=== PATIENT | female | born 1995 | race Caucasian/White ===

== ENCOUNTER 2018-02-23 09:59 | Inpatient (IN) | payer OTHER ==
[2018-02-23] MEDS ORDERED: Insulin Regular 300 UNITS/3 ML VIAL ONE (10:14)
--- NOTE | 2018-02-23 10:41 | RAD ---
CHEST ONE VIEW: History: Chest pain. Comparison: 11-01-16 FINDINGS: The lungs are clear. No pneumothorax or effusion. Cardiac silhouette and mediastinal contours are wit hin normal limits. No acute osseous abnormality. IMPRESSION: No acute intrathoracic abnormality. POS: [facility]
[2018-02-23] MEDS ORDERED: Insulin Regular 100 units/100 ml in NS IVPB SCH (10:45)
[2018-02-23 10:49] LABS: Hemoglobin 16.6 g/dL (12.0-16.0); Mean Corpuscular HGB CONC 34.2 g/dL (32.0-36.0); Mean Corpuscular Hemoglobin 31.2 pg (27.0-31.0); Mean Corpuscular Volume 91.2 fL (78.0-98.0); Mean Platelet Volume 8.5 fL (7.4-10.4); Platelet Count 547 thou/uL (130-400); RBC Distribution Width 13.7 % (11.5-14.5); Red Blood Cell (RBC) Count 5.33 mill/uL (4.20-5.40); White Blood Cell (WBC) Count 52.8 thou/uL (4.8-10.8)
[2018-02-23 10:51] LABS: Bilirubin Negative (Negative); Blood, Urine Small (Negative); Glucose, Urine (Dipstick) >=1000 mg/dL (Negative); Leukocyte Negative (Negative); Nitrite Negative (Negative); Protein, Urine (Dipstick) 30 mg/dL (Neg-Trace); Specific Gravity, Urine 1.025 (1.005-1.030); Urobilinogen 0.2 mg/dL (0.2-1.0); pH, Urine 5.5 (5.0-9.0)
[2018-02-23 10:54] LABS: BHCG - Serum Negative (NEGATIVE); Pregs Control Background? CLEAR/WHITE (CLR/WHITE); Pregs Control Bar Appear? YES (CONTROL BAR)
[2018-02-23 10:57] LABS: Clarity Clear (Clear)
[2018-02-23] MEDS ORDERED: Piperacillin/Tazobactam 4.5 GM VIAL ONE (11:01)
[2018-02-23 11:05] LABS: Band 44 % (5-11); Eosinophils 1 % (0-10); Lymphocytes 19 % (21-51); MDiff Complete? YES; Metamyelocyte 2 % (0-0); Monocytes 5 % (0-10); Myelocyte 1 % (0-0); Neutrophil 27 % (42-75); Nucleated RBC 2 % (0); PLT Morphology Comment Appears Increased; Poikilocytosis SLIGHT = 6-15 cells (100X) (0-5/hpf); Reactive Lymphocytes 1 % (0-10)
[2018-02-23 11:06] LABS: ALT (SGPT) 26 U/L (8-55); AST (SGOT) 33 U/L (5-34); Albumin 4.7 g/dL (3.5-5.0); Alkaline Phosphatase 221 U/L (40-150); BUN (Urea Nitrogen) 29 mg/dL (7.0-18.7); Bilirubin, Total 0.2 mg/dL (0.2-1.2); Calc. Creatinine Clearance 0 mL/min (70-130); Calcium 10.5 mg/dL (7.8-10.44); Carbon Dioxide Less than 8 mmol/L (22-29); Chloride 96 mmol/L (98-107); Estimated GFR-MDRD 36; Globulin 5.4 g/dL (2.4-3.5); Glucose 707 mg/dL (70-105); Magnesium 3.7 mg/dL (1.6-2.6); Potassium 5.8 mmol/L (3.5-5.1); Protein, Total 10.1 g/dL (6.0-8.3); Sodium 126 mmol/L (136-145)
[2018-02-23 11:06] LABS: Bacteria/HPF 1+ HPF (None Seen); Crystals/HPF 2+ AMORPH URATES HPF (Negative); RBC/HPF 0-3 HPF (0-3); Squamous Epithelial 0-3 HPF (0-3); WBC/HPF 0-3 HPF (0-3)
[2018-02-23] MEDS ORDERED: Ondansetron PF 4 MG/2 ML Vial ONE (12:18)
--- NOTE | 2018-02-23 12:25 | PDOC.FPRHP ---
- History of Present Illness Chief Complaint: DKA History of Present Illness: The patient is a 22YO female with a PMH significant for DMI and multiple admissions for DKA who was brought in by EMS for elevated blood glucose found after being found in her bed this morning. Of note, history taken from the patient limited 2/2 AMS and inability to answer questions other than by noding yes or no so majority of history obtained from ER physician and EMS. Per EMS the patient was late to work today so someone went to her house to check on her and found her laying in bed. EMS reports her BG was elevated at 481 on the seen and she was tachycardic. The patient endorsed some nausea and some ear pain. Per the patient's nurse, she reportedly has had recent trouble with eat infections and has been seen at [facility] for this. However, the patient denied any recent antibiotic use. ED Course: 4mg IV zofran 4.5g zosyn 0.1units/kg IV push of Novolin 0.1 units/kg/hr novolin drip 2L of LR - Allergies/Adverse Reactions Allergies Allergy/AdvReac Type Severity Reaction Status Date / Time No Known Drug Allergies Allergy Verified 04/02/16 00:38 - Home Medications Medication Instructions Recorded Confirmed Type HumaLOG [HumaLOG Vial] 0 unit SC ACHS PRN 04/02/16 11/01/16 History NPH, Human Insulin Isophane 12 unit SC QAM 04/02/16 11/01/16 History [HumuLIN N] Insulin Degludec [Tresiba 28 unit SQ DAILY 11/01/16 11/01/16 History Flextouch U-100] - History PMHx: DMI PSHx: per last H&P, Appe at age 15 FHx: No FH of DM per patient. Per last H&P, colon and rectal CA in father. Social: No EtOH, drug, or tobacco use. - Review of Systems ROS unobtainable: other (limited 2/2 AMS) General: denies: fever/chills ENT: reports: other (+ ear pain) Gastrointestinal: reports: nausea, vomiting. denies: diarrhea, abdominal pain Genitourinary: denies: dysuria, polyuria - Vital signs BP: 137/87 HR: 126 RR: 29 Tmax: 94.8F rectal Pox: 100% on RA Wt: 51.60kg - Physical Exam Constitutional: other (moderate distress 2/2 hypothermia and tachypnea) HEENT: normocephalic and atraumatic, PERRLA, conjunctiva clear, grossly normal vision, grossly normal hearing, oropharynx clear, other (dry mucus membranes; B/ L bulging and erythematous TMs, L>R) Neck: supple, FROM Heart: normal S1/S2, pulses present, no edema, other (tachycardic w/ regular rhythm) Lungs: CTAB, good air movement, no wheezing, other (moderate respiratory distress with tachypnea) Abdomen: soft, non-tender Musculoskeletal: normal structure, ROM grossly normal Neurological: no focal deficit Skin: no rash/lesions, good turgor, no jaundice Heme/Lymphatic: no unusual bruising or bleeding, no purpura Psychiatric: other (oriented to person but not place or time) FMR H&P: Results - Labs Result Diagrams: 02/23/18 10:08 02/23/18 13:54 Lab results: WBC 52.8 thou/uL (4.8-10.8) H* 02/23/18 10:08 Hgb 16.6 g/dL (12.0-16.0) H 02/23/18 10:08 Hct 48.7 % (36.0-47.0) H 02/23/18 10:08 MCV 91.2 fL (78.0-98.0) 02/23/18 10:08 Plt Count 547 thou/uL (130-400) H 02/23/18 10:08 Band Neuts % (Manual) 44 % (5-11) H 02/23/18 10:08 Sodium 126 mmol/L (136-145) L 02/23/18 10:08 Potassium 5.8 mmol/L (3.5-5.1) H 02/23/18 10:08 Chloride 96 mmol/L (98-107) L 02/23/18 10:08 Carbon Dioxide Less than 8 mmol/L (22-29) L* 02/23/18 10:08 BUN 29 mg/dL (7.0-18.7) H 02/23/18 10:08 Creatinine 1.74 mg/dL (0.6-1.1) H 02/23/18 10:08 Glucose 707 mg/dL (70-105) H* 02/23/18 10:08 Calcium 10.5 mg/dL (7.8-10.44) H 02/23/18 10:08 Total Bilirubin 0.2 mg/dL (0.2-1.2) 02/23/18 10:08 AST 33 U/L (5-34) 02/23/18 10:08 ALT 26 U/L (8-55) 02/23/18 10:08 Alkaline Phosphatase 221 U/L (40-150) H 02/23/18 10:08 Serum Total Protein 10.1 g/dL (6.0-8.3) H 02/23/18 10:08 Albumin 4.7 g/dL (3.5-5.0) 02/23/18 10:08 Urine Ketones > or equal to 80 mg/dL (Negative) H 02/23/18 10:20 Urine Blood Small (Negative) H 02/23/18 10:20 Urine Nitrite Negative (Negative) 02/23/18 10:20 Ur Leukocyte Esterase Negative (Negative) 02/23/18 10:20 Urine RBC 0-3 HPF (0-3) 02/23/18 10:20 Urine WBC 0-3 HPF (0-3) 02/23/18 10:20 Ur Squamous Epith Cells 0-3 HPF (0-3) 02/23/18 10:20 Urine Bacteria 1+ HPF (None Seen) H 02/23/18 10:20 - EKG Interpretation EKG: Sinus tachycardia. - Radiology Interpretation Chest x-ray Status: report reviewed by me (No acute cardiopulmonary process.) FMR H&P: A/P - Problem List (1) Hyperkalemia Current Visit: Yes Status: Acute Code(s): E87.5 - HYPERKALEMIA (2) Leukocytosis Current Visit: Yes Status: Acute Code(s): D72.829 - ELEVATED WHITE BLOOD CELL COUNT, UNSPECIFIED (3) Hyponatremia Current Visit: Yes Status: Acute Code(s): E87.1 - HYPO-OSMOLALITY AND HYPONATREMIA Comment: Pseudohyponatremia due to hyperglycemia (4) Metabolic acidosis Current Visit: Yes Status: Acute Code(s): E87.2 - ACIDOSIS (5) DKA (diabetic ketoacidoses) Current Visit: Yes Status: Acute Code(s): E13.10 - OTH DIABETES MELLITUS WITH KETOACIDOSIS WITHOUT COMA Qualifiers: Diabetes mellitus type: type 1 Diabetes mellitus complication detail: without coma Qualified Code(s): E10.10 - Type 1 diabetes mellitus with ketoacidosis without coma (6) Polycythemia due to fall in plasma volume Current Visit: Yes Status: Acute Code(s): D75.1 - SECONDARY POLYCYTHEMIA (7) Thrombocytosis Current Visit: Yes Status: Acute (8) Otitis media Current Visit: Yes Status: Acute Code(s): H66.90 - OTITIS MEDIA, UNSPECIFIED , UNSPECIFIED EAR Qualifiers: Laterality: bilateral Spontaneous tympanic membrane rupture: without spontaneous rupture - Plan 22YO female w/ a PMH significant for DMI and previous admissions for DKA who presented to the ED in DKA after being found down in her home earlier this morning. DKA: - Will keep NPO and continue insulin drip at 5 units/hr. Will continue Q1H BG checks while on drip. - Will continue IVFs per DKA protocol. - Will obtain BMPs Q4H to monitor electrolytes and anion gap. - ABG pending but CMP significant for metabolic acidosis with a bicarb level of 8. - Will attempt to contact PCP and/or family in order to obtain home meds. Hyperkalemia: - K of 5.8 on presentation but was given an insulin bolus and started on an insulin drip which should help correct this. EKG negative for any peaked T waves. - Will get BMPs Q4H to ensure K does not get too low 2/2 insulin drip. Will replace PRN. KUSHAL: - BUN/Cr elevated at 29/1.74 on admission. Will continue with IVF resuscitation and continue to monitor with QD labs. - Likely 2/2 volume depletion from DKA. B/L Otitis Media: - PE significant for B/L injected TMs L>R. - Will continue broad spectrum antibiotics for now as patient technically meets sepsis criteria given abnormal vitals. Will de-escalate abxs PRN based on procal. Leukocytosis with bandemia: - WBC of 52.8 on presentation with hypothermia, tachycardia, and tachypnea. Patient meets SIRS criteria but only potential source of infection on PE and labs is B/L otitis media. - s/p 4.5g of zosyn in the ED. Will continue Zosyn and add vancomycin as well given significant bandemia and patient's ill appearance. Procalcitonin pending. Will deescalate Abx therapy once PRN based on procal. Lactate mildly elevated at 2.2 but likely 2/2 stress response from DKA. - Flu swab pending as well to r/o viral source of infection. Blood and urine cultures pending as well. Polycythemia: - Likely 2/2 hemoconcentration from volume depletion due to DKA. - Will continue to monitor w/ QD labs until down trend can be established. Thrombocytosis: - Platelets elevated at 547 on presentation. - Likely also 2/2 volume depletion from DKA and/or acute phase reactant 2/2 infection. - Will continue to monitor w/ QD bloodwork. DMI: - Will obtain an A1c as suspect poor med compliance due to multiple admissions for DKA. - Will get home meds from PCP and/or family and restart once patient's BG has stabilized and she is off the insulin drip. - Q1H BG checks while on drip and will deescalate to ACHS once off drip. FMR H&P: Upper Level - Pertinent history 22 yo female here for nausea/vomiting. Patient history is limited due to patient AMS, she is able to make spontaneous eye contact and answer yes or no questions, but has difficulty verbalizing acute or chronic history. Patient endorses compliance with insulin. ER reports that bedside family reports that patient has been at [facility] or UC for URI symptoms and ear infections. Denies antibiotic use for ear infections. Previous admissions (Oct 2016, Mar 2016) showed that patient follows up with merchandise planning manager, Jenny Lipscomb [facility], in [facility]. - Pertinent findings 125/72 HR: 126 TEMP: 93.3 RR: 25 SO2: 100% on RA WBC: 52.8 Neut: 27% Band: 44% Na: 126 K 5.8 CO2: < 8 Cr: 1.74 Gluc: 707 Ca: 10.5 M.7 Bhydrox: 13.07 Lactate: 2.2 test: negative Ur Gluc: >1000 Ur Ketones: >80 CXR: No acute abnormality GCS: 12 (spontaneously opening eyes, incomprehensible sounds, obeys commands) CARD: tachycardic RESP: CTAB, Kussmaul breathing ABD: NTTP EXT: cool, no cyanosis or edema - Plan Date/Time: 02/23/18 1225 I, Mihai Morgan DO, have evaluated this patient and agree with findings/plan as outlined by product development intern resident. Pertinent changes/additions are listed here. #Diabetic Ketoacidosis -DKA protocol -monitor anion gap, unable to measure at this time due to CO2 <8 -unsure of exact source of infection # bilateral otitis media -covered with broad spectrum at this time #Leukocytosis -unsure of source but could just be due to otitis media, bands high; Lactate 2.2 ; received zosyn in ER -procal, flu, blood cx, urine cx pending -trend labs -consider de-escalation of abx to just cover otitis media #Diabetes -Discuss regimen with patient once she is more oriented #Acute Kidney Injury -fluid resuscitation via DKA protocol
[2018-02-23 14:15] LABS: BUN (Urea Nitrogen) 26 mg/dL (7.0-18.7); Calc. Creatinine Clearance 0 mL/min (70-130); Calcium 9.7 mg/dL (7.8-10.44); Chloride 110 mmol/L (98-107); Estimated GFR-MDRD 55; Glucose 400 mg/dL (70-105); Potassium 4.5 mmol/L (3.5-5.1); Sodium 136 mmol/L (136-145)
[2018-02-23 14:27] LABS: Carbon Dioxide Less than 8 mmol/L (22-29)
[2018-02-23 15:57] LABS: Actual Bicarbonate (HCO3a) 2.6 mEq/L (22-28); Base Excess (BEa) -25.8 mEq/L (-2.0 to +3.0); Calcium, Ionized 1.44 mmol/L (1.12-1.30); Carboxyhemoglobin (COHb) 0.8 gm% (0.0-3.0); Hemoglobin (Hb) 14.3 g/dL (12.0-16.0); O2 Tension (PaO2) 114.3 mmHg (80.0-100.0); Potassium - ABG Lab 4.52 mmol/L (3.70-5.30)
[2018-02-23] MEDS ORDERED: Sodium Bicarb 50 MEQ/50 ML Abboject 8.4% SYRINGE ONE (16:00)
[2018-02-23] MEDS ORDERED: Sodium Bicarb 50 MEQ/50 ML Abboject 8.4% SYRINGE IVP SCH (16:00)
[2018-02-23] MEDS ORDERED: Sodium Bicarb 50 MEQ/50 ML VIAL ONE ×3 (16:02→20:09)
[2018-02-23 16:07] LABS: CO2 Tension 9.8 mmHg (35.0-45.0); pH, Arterial 7.04 (7.35-7.45)
[2018-02-23 16:08] LABS: Puncture Site RRA
[2018-02-23 16:10] LABS: Hemoglobin A1c 13.5 % (4.0-6.0)
[2018-02-23] MEDS ORDERED: Promethazine HCl 25 MG/ML VIAL IVPB SCH (16:12)
[2018-02-23] MEDS ORDERED: Ondansetron PF 4 MG/2 ML Vial IVP PRN ×2 (16:13→16:48)
[2018-02-23] MEDS ORDERED: Dextrose 5 %-0.45 % NaCl 1,000 ML IV PRN (16:48)
[2018-02-23] MEDS ORDERED: Dextrose 5% in Water 1,000 ML IV PRN (16:48)
[2018-02-23] MEDS ORDERED: Sodium Chloride 0.9% 1,000 ML IV PRN ×4 (16:48)
[2018-02-23] MEDS ORDERED: NS 0.9% w/ 20 MEQ KCL 1,000 ML IV PRN ×2 (16:48)
[2018-02-23] MEDS ORDERED: Dextrose 50% Abboject 50 ML SYRINGE SLOW IVP PRN (16:48)
--- NOTE | 2018-02-23 17:12 | RAD ---
ABDOMEN 1 VIEW: HISTORY: Intractable vomiting. Evaluate for small bowel obstruction. COMPARISON: None. FINDINGS: Evaluation for free air is limited on upright examination. No air fluid levels are seen. Mild stool burden within the colon. No abnormal calcifications projecting over the renal shadows. IMPRESSION: No evidence for bowel obstruction. POS: [facility]
[2018-02-23] MEDS: Vancomycin HCl 1 GM in Premix Bag 1 BAG IVPB SCH (17:14)
--- NOTE | 2018-02-23 17:27 | CON ---
DATE OF CONSULTATION: HISTORY OF PRESENT ILLNESS: Gosia López is a 22-year-old female with known history of type 1 diabetes, has been here several times, presented to the hospital after her friend's family noticed that she did not come to work. She was found in bed encephalopathic, tachycardic, nauseated and vomited a large volume of vomitus, dirty brown, in the MICU. Her blood sugar is 481. She was given some Zofran and is on an insulin drip at 5 units an hour. We have been seeing her in MICU consult. Unable to get adequate history. She is clearly encephalopathic, though she denies any pain or discomfort. PAST MEDICAL HISTORY: Type 1 diabetes. PREVIOUS SURGERIES: Appendix. MEDICATIONS: She had normally had been taking insulin at home, it is unknown at this stage. As per the records, it appears she was taking NPH 70/30, 12 units once a day. ALLERGIES: NONE. SOCIAL HISTORY: Tobacco, none. Alcohol, none. She is apparently from out of town. PHYSICAL EXAMINATION: VITAL SIGNS: She is breathing 30 times a minute, pulse is 138, temperature 97, blood pressure 120/82. GENERAL: She is clinically dry. CHEST: Decreased breath sounds. No wheezing. CARDIAC: Sinus tach. ABDOMEN: Soft. NEUROLOGIC: She is oriented to place and person. LABORATORY DATA: Bicarb is only 8, creatinine 1.2, BUN is 26, glucose 326. Additional lab shows a white count of 52,000, H and H 16 and 48, platelet count is normal. She has a big left shift with 44 bandemia, 27 neutrophils. IMPRESSION: 1. Uncontrolled diabetes. 2. Nausea and vomiting. 3. Marked leukocytosis. I agree with vancomycin, and I have added Maxipime for gram-negative coverage. Continue aggressive hydration. Antinausea medication. Blood gas is consistent with severe metabolic acidosis. Additionally, she was given two amps of bicarb. We will follow on the MICU. She probably needs ongoing counseling regarding her uncontrolled diabetes. This is a consultation note of 70 minutes, of which, 50% in direct patient care. Job ID: [id number]
[2018-02-23 17:43] VITALS: BMI 21.2
[2018-02-23 18:08] LABS: BUN (Urea Nitrogen) 22 mg/dL (7.0-18.7); Calc. Creatinine Clearance 64 mL/min (70-130); Chloride 117 mmol/L (98-107); Estimated GFR-MDRD 55; Glucose 259 mg/dL (70-105); Potassium 4.5 mmol/L (3.5-5.1); Sodium 144 mmol/L (136-145)
[2018-02-23 18:11] LABS: Carbon Dioxide Less than 8 mmol/L (22-29)
[2018-02-23 18:13] LABS: Lactic Acid 1.6 mmol/L (0.5-2.2)
[2018-02-23] MEDS: D5 1/2 NS w/20 mEq KCL 1,000 ML IV PRN ×2 (18:21→22:25)
[2018-02-23 20:01] LABS: Actual Bicarbonate (HCO3a) 2.2 mEq/L (22-28); Base Excess (BEa) -27.3 mEq/L (-2.0 to +3.0); Calcium, Ionized 1.38 mmol/L (1.12-1.30); Carboxyhemoglobin (COHb) 0.4 gm% (0.0-3.0); Hemoglobin (Hb) 14.1 g/dL (12.0-16.0); Potassium - ABG Lab 3.78 mmol/L (3.70-5.30)
[2018-02-23 20:02] LABS: pH, Arterial 6.99 (7.35-7.45)
[2018-02-23 20:03] LABS: ALV-art Gradient 8.105 (0-20); CO2 Tension 9.3 mmHg (35.0-45.0); Puncture Site LRA
[2018-02-23] MEDS ORDERED: Sodium Bicarbonate 150 MEQ in Dextrose 5% in Water 1,000 ML IV SCH (20:15)
[2018-02-23] MEDS ORDERED: Sodium Bicarb 50 MEQ/50 ML VIAL IVP SCH (20:15)
[2018-02-23] MEDS ORDERED: Sodium Bicarbonate 150 MEQ in Sodium Chloride 0.45% 1,000 ML IV SCH (20:30)
--- NOTE | 2018-02-23 20:36 | PDOC.EVN ---
Event Note - Event Note Event Note: Received page from [facility] at approximately 1930 about patient becoming increasingly confused. ABG was performed. pH was 6.9 CO2 9, O2 100. 2 amp of bicarb was given. Bicarb drip started. Insulin bolus was given as BG still 300+. Pulm was alerted of this. Recommended to continue with intervention and re- evaluate frequently. FMR attending notified and saw patient.
[2018-02-23 21:11] LABS: Amphetamine Not Detected (NotDetected); Barbiturates Screen Not Detected (NotDetected); Benzodiazepine Screen Not Detected (NotDetected); Cocaine Metabolite Screen Not Detected (NotDetected); Medtox Control Line Valid? VALID (VALID); Medtox Reader # READER 1; Methadone Not Detected (NotDetected); Methamphetamine Not Detected (NotDetected); Opiate Screen Not Detected (NotDetected); Oxycodone Screen Not Detected (NotDetected); Phencyclidine (PCP) Not Detected (NotDetected); THC/Cannabinoid Screen Not Detected (NotDetected); Tricyclic Screen Not Detected (NotDetected)
[2018-02-23 21:51] LABS: Band 26 % (5-11); Lymphocytes 15 % (21-51); MDiff Complete? YES; Mean Corpuscular HGB CONC 34.4 g/dL (32.0-36.0); Mean Corpuscular Hemoglobin 30.4 pg (27.0-31.0); Mean Corpuscular Volume 88.4 fL (78.0-98.0); Mean Platelet Volume 7.8 fL (7.4-10.4); Monocytes 1 % (0-10); Neutrophil 58 % (42-75); PLT Morphology Comment Appears Adequate; Platelet Count 282 thou/uL (130-400); RBC Distribution Width 13.6 % (11.5-14.5); Red Blood Cell (RBC) Count 4.59 mill/uL (4.20-5.40)
[2018-02-23 21:58] LABS: Chloride 117 mmol/L (98-107); Potassium 3.7 mmol/L (3.5-5.1); Sodium 146 mmol/L (136-145)
[2018-02-23 21:59] LABS: Calcium 8.8 mg/dL (7.8-10.44); Glucose 337 mg/dL (70-105)
[2018-02-23 22:02] LABS: Calc. Creatinine Clearance 61 mL/min (70-130); Carbon Dioxide Less than 8 mmol/L (22-29); Estimated GFR-MDRD 52
[2018-02-23 22:03] LABS: BUN (Urea Nitrogen) 20 mg/dL (7.0-18.7)
[2018-02-23] MEDS: Cefepime 1 GM in Sodium Chloride 0.9% 100 ML IVPB SCH (22:09)
[2018-02-23] MEDS: Sodium Bicarbonate 150 MEQ in Sodium Chloride 0.45% 1,000 ML IV SCH (22:23)
[2018-02-24 00:10] LABS: O2 Tension (PaO2) 98.4 mmHg (80.0-100.0); pH, Arterial 7.39 (7.35-7.45)
[2018-02-24 00:11] LABS: Actual Bicarbonate (HCO3a) 11.7 mEq/L (22-28); Carboxyhemoglobin (COHb) 0.5 gm% (0.0-3.0); Hemoglobin (Hb) 13.1 g/dL (12.0-16.0); Potassium - ABG Lab 2.95 mmol/L (3.70-5.30)
[2018-02-24 00:12] LABS: Calcium, Ionized 1.28 mmol/L (1.12-1.30); Puncture Site LRA
[2018-02-24 01:14] LABS: Anion Gap 21 mmol/L (10-20); BUN (Urea Nitrogen) 18 mg/dL (7.0-18.7); Calc. Creatinine Clearance 61 mL/min (70-130); Carbon Dioxide 11 mmol/L (22-29); Chloride 122 mmol/L (98-107); Estimated GFR-MDRD 52; Glucose 241 mg/dL (70-105); Sodium 151 mmol/L (136-145)
[2018-02-24 01:16] LABS: Potassium 2.9 mmol/L (3.5-5.1)
[2018-02-24 01:28] LABS: Band 35 % (5-11); Hemoglobin 12.8 g/dL (12.0-16.0); Lymphocytes 12 % (21-51); MDiff Complete? YES; Mean Corpuscular HGB CONC 35.9 g/dL (32.0-36.0); Mean Corpuscular Hemoglobin 30.7 pg (27.0-31.0); Mean Corpuscular Volume 85.5 fL (78.0-98.0); Mean Platelet Volume 7.4 fL (7.4-10.4); Metamyelocyte 1 % (0-0); Monocytes 1 % (0-10); Neutrophil 51 % (42-75); PLT Morphology Comment Appears Adequate; Platelet Count 264 thou/uL (130-400); RBC Distribution Width 13.7 % (11.5-14.5); Red Blood Cell (RBC) Count 4.16 mill/uL (4.20-5.40); White Blood Cell (WBC) Count 22.9 thou/uL (4.8-10.8)
[2018-02-24] MEDS ORDERED: 1/2 NS IV SCH (02:00)
[2018-02-24] MEDS ORDERED: KCL IV SCH (02:00)
[2018-02-24] MEDS: D5 1/2 NS w/20 mEq KCL 1,000 ML IV PRN (03:27)
[2018-02-24 05:15] LABS: Anion Gap 17 mmol/L (10-20); BUN (Urea Nitrogen) 16 mg/dL (7.0-18.7); Calc. Creatinine Clearance 63 mL/min (70-130); Calcium 8.9 mg/dL (7.8-10.44); Carbon Dioxide 12 mmol/L (22-29); Chloride 123 mmol/L (98-107); Estimated GFR-MDRD 54; Glucose 246 mg/dL (70-105); Sodium 149 mmol/L (136-145)
[2018-02-24 05:17] LABS: Potassium 2.8 mmol/L (3.5-5.1)
[2018-02-24] MEDS ORDERED: D5 1/2 NS w/40 mEq KCL 1,000 ML IV SCH (05:30)
--- NOTE | 2018-02-24 05:49 | PDOC.FM ---
- Subjective Subjective: Patient became more acidotic overnight requiring another 150mEq of bicarb. Per nursing staff is not more alert and talkative but would not cooperate on exam this morning. Still only nodding her head in repsonse to questions. Nursing staff reported persistent nausea but no more vomiting. - Objective MAR Reviewed: Yes Vital Signs & Weight: Vital Signs (12 hours) Temp Pulse Resp BP Pulse Ox 02/24/18 04:29 98.6 F 122 H 23 H 117/79 99 02/24/18 00:36 99.6 F 120 H 24 H 124/83 99 02/23/18 19:52 96.9 F L 147 H 38 H 144/95 H 100 Weight Weight 56.245 kg Result Diagrams: 02/25/18 04:59 02/27/18 06:17 Phys Exam - Physical Examination Constitutional: NAD HEENT: sclera anicteric Neck: supple, full ROM Respiratory: no wheezing, no rales, no rhonchi, clear to auscultation bilateral Cardiovascular: no significant murmur tachycardic with regular rhythm Gastrointestinal: positive bowel sounds Musculoskeletal: no edema, pulses present Neurological: non-focal, moves all 4 limbs Deviation from normal: drowsy but arousable; not compliant in answering questions verbally depressed affect Skin: no rash, normal turgor Dx/Plan (1) DKA (diabetic ketoacidoses) Code(s): E13.10 - OTH DIABETES MELLITUS WITH KETOACIDOSIS WITHOUT COMA Status : Acute Qualifiers: Diabetes mellitus type: type 1 Diabetes mellitus complication detail: without coma Qualified Code(s): E10.10 - Type 1 diabetes mellitus with ketoacidosis without coma (2) Hyperkalemia Code(s): E87.5 - HYPERKALEMIA Status: Resolved (3) Leukocytosis Code(s): D72.829 - ELEVATED WHITE BLOOD CELL COUNT, UNSPECIFIED Status: Acute (4) Hyponatremia Code(s): E87.1 - HYPO-OSMOLALITY AND HYPONATREMIA Status: Acute (5) Metabolic acidosis Code(s): E87.2 - ACIDOSIS Status: Resolved (6) Polycythemia due to fall in plasma volume Code(s): D75.1 - SECONDARY POLYCYTHEMIA Status: Resolved (7) Thrombocytosis Status: Resolved (8) Otitis media Code(s): H66.90 - OTITIS MEDIA, UNSPECIFIED, UNSPECIFIED EAR Status: Acute Qualifiers: Laterality: bilateral Spontaneous tympanic membrane rupture: without spontaneous rupture (9) Hypokalemia with shifts of fluid from extracellular to intracellular space Code(s): E87.6 - HYPOKALEMIA Status: Acute (10) Diabetes mellitus type 1 Status: Acute - Plan Plan: 22YO female w/ a PMH significant for DMI and previous admissions for DKA who presented to the ED in DKA after being found down in her home. DKA: - Improving but patient still has an AG of 16 per AM labs. - Will keep NPO but stop insulin drip for now due to severe hypokalemia but will start on a long acting insulin BID per Pulmonology recs. Will continue Q1H BG checks while patient still has a gap. - Will start on 1/2 NS w/ 40 KCl @ 200mL/hr given hypernatremia and hypokalemia. - Will obtain BMPs Q4H to monitor electrolytes and anion gap. - ABG this morning improved but bicard still low at 20. Hypokalemia: - K of 2.8 this AM. Started patient on 1/2 NS w/ 40mEq of KCl @ 200mL/hr this AM. Will also see if patient tolerates an additional 40mEq PO. Will continue to monitor K levels throughout the day & with QD labs. Hyperkalemia: - Resolved. K of 5.8 on presentation but it has since dropped to 2.8 this morning since being on the insulin drip. Will replace PRN. Hypernatremia: - Na of 149 this AM s/p 150 amps of bicarb overnight. Changed to 1/2 NS w/ KCL this AM. - Will continue to monitor with QD labs. KUSHAL: - Improving. BUN/Cr down to 161.24 this AM. Will continue with IVF resuscitation and continue to monitor with QD labs. - Likely prerenal in origin 2/2 volume depletion from DKA. B/L Otitis Media: - PE on admission significant for B/L injected TMs L>R. - Will continue broad spectrum antibiotics for now as repeat procal this AM still high at 4.58. Will continue to trend and de-escalate abxs PRN based on procal. Leukocytosis with bandemia: - WBC of 52.8 on presentation but down to 22.9 this AM after getting aggressive IVFs overnight. - Will continue Zosyn and vancomycin as procalcitonin this AM still above normal at 4.58 but slightly down from 5.22 around midnight. Will continue to trend and deescalate Abx therapy PRN based on procal. - Blood and urine cultures tentatively negative. Polycythemia: - Resolved. H/H WNLs this AM. Likely 2/2 hemoconcentration from volume depletion due to DKA. Thrombocytosis: - Platelets elevated at 547 on presentation but WNLs this AM. - Likely also 2/2 volume depletion from DKA and/or acute phase reactant 2/2 infection. - Will continue to monitor w/ QD bloodwork. DMI: - A1c 13.5 which is not surprising due to parents's reports of multiple admissions for DKA since . - Will get home meds from PCP records and restart once patient's BG has stabilized and her anion gap closes. - Will continue Q1H BG checks for now. Addendum - Attending - Attending Attestation Date/Time: 02/24/181923 I personally evaluated the patient and discussed the management with Dr. Falcon and Dr. Morgan I agree with the History, Examination, Assessment and Plan documented above with any addition or exceptions noted below. 22 yo female with hx of IDDM (Type 1) admitted for severe DKA. HD#1 Patient not at baseline. Still fatigued. Reports severe ear pain. VS, labs, and imaging reviewed. 1. DKA: Severe. Re-start insulin drip. Continue to follow DKA protocol. Continue IMCU monitoring. Follow up frequently throughout the day. Will need to continue insulin drip until gap closed and ketosis corrected for at least 2 blood draws. Patient very brittle and easily converts to DKA. This is 3rd episode since January. Cultures pending but likely due to severe OM. Continue emperic antibiotics. Trend procal and WBCs. Trend and correct electrolyte and metabolic abnormalities DEVON. 2. T1DM: Will notify endocrinologiest. Adjust basal insulin based on amount required by insulin drip. Will start basal insulin once able. Leave on insulin drip for 2 hours instead of 1 due to severity of DKA. 3. Bilateral OM with effusions: Continue Cefepime. Will transition to oral 3rd gen cephalosporin once cultures back to rule out any other complications. 4. KUSHAL: Continue to monitor. No known kidney disease per patient. Pre-renal etiology. Dispo: Continue close monitoring in IMCU. Re-start DKA protocol. Rajani
[2018-02-24] MEDS: Vancomycin HCl 1 GM in Premix Bag 1 BAG IVPB SCH ×2 (05:55→17:09)
[2018-02-24] MEDS: Sodium Bicarbonate 150 MEQ in Sodium Chloride 0.45% 1,000 ML IV SCH ×3 (06:45→21:33)
[2018-02-24] MEDS ORDERED: Potassium Chloride 20 MEQ TAB PO SCH ×2 (08:00→08:15)
[2018-02-24 08:36] LABS: Magnesium 1.5 mg/dL (1.6-2.6)
[2018-02-24 08:46] LABS: Phosphorus Less than 1.0 mg/dL (2.3-4.7)
[2018-02-24] MEDS ORDERED: Potassium Phosphate 30 MMOL, Magnesium Sulfate 2 GM in Sodium Chloride 0.9% 500 ML IVPB SCH (09:15)
--- NOTE | 2018-02-24 09:16 | PRG ---
DATE OF SERVICE: 02/24/2018 SUBJECTIVE: A 22-year-old female, remains in the MICU. Saturations are 90% on room air, respirations 18, temperature 99, pulse 122, and blood pressure 117/65. She is better. She is still nauseated. Her blood sugar is 185, her bicarb is 12, creatinine 1.24, potassium 2.8, and sodium 149. OBJECTIVE: CHEST: With decreased breath sounds. No wheezing. CARDIAC: Sinus tach. ABDOMEN: Soft without any masses. IMPRESSION: 1. Diabetic ketoacidosis, still has anion gap. 2. Azotemia. 3. Nausea and vomiting. PLAN: So far, cultures are negative. Would deescalate antibiotics once we have all the cultures back. She needs insulin. Otherwise, she is going to go back into severe DKA and metabolic acidosis. Continue hydration. Replace potassium, magnesium, and phosphorus. We will follow while in the MICU. Job ID: [id number]
[2018-02-24] MEDS: Potassium Chloride 40 MEQ in Sodium Chloride 0.45% 1,000 ML IV SCH ×2 (09:32→13:32)
[2018-02-24] MEDS: Insulin Glargine 15 UNITS in Pre-Filled Syringe 1 EACH SC SCH ×2 (09:32→19:33)
[2018-02-24] MEDS: Cefepime 1 GM in Sodium Chloride 0.9% 100 ML IVPB SCH ×2 (09:32→21:26)
[2018-02-24] MEDS: Pot Chloride/Pot Bicarb/Cit Ac 25 mEq Effervescent Tablet PO SCH ×2 (09:33→21:26)
[2018-02-24 10:17] LABS: Anion Gap 16 mmol/L (10-20); BUN (Urea Nitrogen) 15 mg/dL (7.0-18.7); Calc. Creatinine Clearance 71 mL/min (70-130); Calcium 9.1 mg/dL (7.8-10.44); Carbon Dioxide 14 mmol/L (22-29); Chloride 120 mmol/L (98-107); Estimated GFR-MDRD 62; Glucose 184 mg/dL (70-105); Potassium 3.3 mmol/L (3.5-5.1); Sodium 147 mmol/L (136-145)
[2018-02-24] MEDS ORDERED: HumaLOG 300 UNITS/3 ML VIAL SC PRN (10:26)
[2018-02-24] MEDS ORDERED: Dextrose 5% in Water 1,000 ML IV PRN ×2 (10:26→22:12)
[2018-02-24] MEDS ORDERED: Dextrose 50% Abboject 50 ML SYRINGE SLOW IVP PRN ×2 (10:26→22:12)
[2018-02-24] MEDS ORDERED: Magnesium Sulfate 2 GM in Sodium Chloride 0.9% 100 ML IVPB SCH (10:30)
[2018-02-24 10:31] LABS: Actual Bicarbonate (HCO3a) 11.3 mEq/L (22-28); Base Excess (BEa) -11.4 mEq/L (-2.0 to +3.0); Calcium, Ionized 1.24 mmol/L (1.12-1.30); Carboxyhemoglobin (COHb) 0.3 gm% (0.0-3.0); Hemoglobin (Hb) 12.1 g/dL (12.0-16.0); O2 Tension (PaO2) 97.5 mmHg (80.0-100.0); Potassium - ABG Lab 4.42 mmol/L (3.70-5.30); pH, Arterial 7.39 (7.35-7.45)
[2018-02-24 10:34] LABS: Puncture Site RR
[2018-02-24] MEDS ORDERED: Magnesium 2 GM/50 ML 2 GM in Premix Bag 1 BAG IVPB SCH (10:45)
[2018-02-24] MEDS ORDERED: NS 0.9% w/ 40 MEQ KCL 1,000 ML IV PRN ×2 (12:15)
[2018-02-24] MEDS ORDERED: Potassium Phosphate 15 MMOL in Sodium Chloride 0.9% 250 ML 250 ML IV PRN (12:20)
[2018-02-24] MEDS ORDERED: CCU ELECTROLYTE REPLACEMENT PROTOCOL FS PRN (12:20)
[2018-02-24] MEDS ORDERED: Potassium Phosphate 9 MMOL in Sodium Chloride 0.9% 100 ML IVPB PRN (12:20)
[2018-02-24] MEDS ORDERED: Potassium Chloride 20 MEQ TAB PO PRN (12:20)
[2018-02-24] MEDS ORDERED: Magnesium 2 GM/NS 0.9% 100 ML 2 GM in Premix Bag 1 BAG IVPB PRN (12:20)
[2018-02-24] MEDS ORDERED: Potassium Phosphate 12 MMOL in Sodium Chloride 0.9% 250 ML 250 ML IV PRN (12:20)
[2018-02-24] MEDS ORDERED: Magnesium Oxide 400 MG TAB PO PRN ×2 (12:20)
[2018-02-24] MEDS ORDERED: Potassium Chloride 40 MEQ in Premix Bag 1 BAG IVPB PRN (12:20)
[2018-02-24] MEDS ORDERED: Potassium Chloride 40 MEQ in Sodium Chloride 0.9% 250 ML 250 ML IVPB PRN (12:20)
[2018-02-24 12:26] LABS: Bicarbonate (HCO3v) 2.7 mmol/L (22.0-29.0); CO2 Tension (PvCO2) 19.3 mmHg (41.0-51.0); O2 Tension (PvO2) 59.1 mmHg (35.0-45.0); pH (Venous) 6.747 (7.35-7.45); vO2 Saturation-calc 58.9 % (94-98)
[2018-02-24 12:27] LABS: Hemoglobin - Calc 19.7 g/dL (12.0-18.0); Potassium 5.8 mmol/L (3.4-4.7)
[2018-02-24 12:28] LABS: Calcium, Ionized 1.33 mmol/L (1.12-1.32); Glucose Greater than 700.0 mg/dL (70-105); Lactate 2.59 mmol/L (0.50-2.20)
[2018-02-24] MEDS ORDERED: CCU Electrolyte Replacement 1 EACH FS SCH (12:30)
[2018-02-24] MEDS: D5 1/2 NS w/40 mEq KCL 1,000 ML IV PRN ×2 (13:30→18:09)
--- NOTE | 2018-02-24 13:59 | PQF ---
DATE: 02-24-18 ATTN: DR. ANDRA WU Please exercise your independent, professional judgment in responding to the clarification form. Clinical indicators are provided on the bottom of this form for your review Please check appropriate box(s): [ x ] Encephalopathy: Type: [ x] Acute [ ] Subacute [ ] Chronic Etiology: [x ] Metabolic [ ] Toxic [ ] Septic [ ] Other (please specify) [ ] Transient Alteration of Awareness [ ] Other diagnosis [ ] Unable to determine In addition, please specify: Present on Admission (POA): [x ] Yes [ ] No [ ] Unable to determine For continuity of documentation, please document condition throughout progress notes and discharge summary. Thank You. CLINICAL INDICATORS - SIGNS / SYMPTOMS / LABS ER DX; DIABETIC KETOACIDOSIS, HYPOTHERMIA, LEUKOCYTOSIS H&P: ROS UNOBTAINABLE LIMITED 2/[address] BARTLETT 02-23-18: SHE WAS FOUND IN BED ENCEPHALOPATHIC EVENT NOTE 02-23-18 DR. HUDSON: PATIENT BECOMING INCREASINGLY CONFUSED PN DR. WU 02-23-18: PATIENT MEETS SIRS CRITERIA BUT ONLY POTENTIAL SOURCE OF INFECTION ON PE AND LABS IN B/L OTITIS MEDIA, METABOLIC ACIDOSIS RISK FACTORS: PN DR. WU 02-23-18: PATIENT MEETS SIRS CRITERIA BUT ONLY POTENTIAL SOURCE OF INFECTION ON PE AND LABS IN B/L OTITIS MEDIA, METABOLIC ACIDOSIS ER DX; DIABETIC KETOACIDOSIS, HYPOTHERMIA, LEUKOCYTOSIS TREATMENTS: ER: NS IVF, ZOSYN IVF, NOVOLIN R, LR IVF (This form is maintained as a part of the permanent medical record) 2014 [employer]. All Rights Reserved ARCENIO [email or web address] Office: [phone] [facility]
--- NOTE | 2018-02-24 14:12 | PQF ---
DATE: 02-24-18 ATTN: DR. ANDRA WU Please exercise your independent, professional judgment in responding to the clarification form. Clinical indicators are provided on the bottom of this form for your review Please check appropriate box(es): [ ] Sepsis due to: (Otitis Media, etc.) [ x ] Localized infection without sepsis [ ] Other diagnosis [ ] Unable to determine In addition, please specify: Present on Admission (POA): [ x ] Yes [ ] No [ ] Unable to determine For continuity of documentation, please document condition throughout progress notes and discharge summary. Thank You. CLINICAL INDICATORS - SIGNS / SYMPTOMS / LABS H&P: DIABETIC KETOACIDOSIS, HYPOTHERMIA, LEUKOCYTOSIS H&P: HISTORY TAKEN FROM THE PATIENT LIMITED 2/2 AMS, LEUKOCYTOSIS, ACUTE OTITIS MEDIA, DKA, PATIENT MEETS SIRS CRITERIA WBC: 02-23-18: 52.8 28.0 02-24-18 22.9 BANDS: 02-23-18: 44 26 02-24-18: 35 PULSE: ER: 121, 115, 119, 126, 126, 130, 133 RR: ER: 31, 32, 29, 30, 26, 32, 29 TEMP: ER: 93.3 RECTAL, 96.4 RECTAL RISK FACTORS: H&P: HISTORY TAKEN FROM THE PATIENT LIMITED 2/2 AMS, LEUKOCYTOSIS, ACUTE OTITIS MEDIA, DKA, PATIENT MEETS SIRS CRITERIA H&P: DIABETIC KETOACIDOSIS, HYPOTHERMIA, LEUKOCYTOSIS TREATMENTS: ER: NS IVF, ZOSYN IVF, LR IVF (This form is maintained as a part of the permanent medical record) 2014 [employer]. All Rights Reserved [email or web address] [email or web address] Office: [phone] [facility]
[2018-02-24 14:47] LABS: Anion Gap 19 mmol/L (10-20); BUN (Urea Nitrogen) 12 mg/dL (7.0-18.7); Calc. Creatinine Clearance 73 mL/min (70-130); Calcium 8.5 mg/dL (7.8-10.44); Carbon Dioxide 12 mmol/L (22-29); Chloride 117 mmol/L (98-107); Estimated GFR-MDRD 64; Glucose 247 mg/dL (70-105); Sodium 144 mmol/L (136-145)
[2018-02-24 18:31] LABS: Anion Gap 10 mmol/L (10-20); BUN (Urea Nitrogen) 10 mg/dL (7.0-18.7); Calc. Creatinine Clearance 91 mL/min (70-130); Calcium 8.4 mg/dL (7.8-10.44); Carbon Dioxide 18 mmol/L (22-29); Chloride 116 mmol/L (98-107); Estimated GFR-MDRD 83; Glucose 137 mg/dL (70-105); Potassium 3.6 mmol/L (3.5-5.1); Sodium 140 mmol/L (136-145)
[2018-02-24] MEDS ORDERED: Magnesium Chloride 64 MG TAB PO SCH (21:00)
[2018-02-24] MEDS: HumaLOG 300 UNITS/3 ML VIAL SC PRN (22:45)
[2018-02-25] MEDS: HumaLOG 300 UNITS/3 ML VIAL SC PRN ×2 (00:46→04:11)
--- NOTE | 2018-02-25 05:33 | PDOC.FM ---
- Subjective Subjective: Patient states she is feeling much better this AM. Was taken off of the insulin drip overnight and BG levels have been in the upper 100s since. Denies any persistent nausea or abdominal pain. - Objective MAR Reviewed: Yes Vital Signs & Weight: Vital Signs (12 hours) Temp Pulse Resp BP Pulse Ox 02/25/18 04:30 97.2 F L 99 19 118/66 100 02/25/18 00:48 99.0 F 101 H 18 98/65 98 02/24/18 19:38 98.6 F 105 H 19 109/68 98 Weight Admit Weight 56.245 kg Weight 56.245 kg I&O: 02/23/18 02/24/18 02/25/18 06:59 06:59 06:59 Intake Total 3500 4100 Output Total 2600 3300 Balance 900 800 Result Diagrams: 02/25/18 04:59 02/27/18 06:17 Phys Exam - Physical Examination Constitutional: NAD HEENT: moist MMs Neck: supple, full ROM Respiratory: no wheezing, no rales, no rhonchi, clear to auscultation bilateral Cardiovascular: no significant murmur tachycardic with regular rhythm Gastrointestinal: soft, non-tender, positive bowel sounds Neurological: non-focal, moves all 4 limbs Psychiatric: normal affect, A&O x 3 Skin: no rash, normal turgor Dx/Plan (1) DKA (diabetic ketoacidoses) Code(s): E13.10 - OTH DIABETES MELLITUS WITH KETOACIDOSIS WITHOUT COMA Status : Acute Qualifiers: Diabetes mellitus type: type 1 Diabetes mellitus complication detail: without coma Qualified Code(s): E10.10 - Type 1 diabetes mellitus with ketoacidosis without coma (2) Leukocytosis Code(s): D72.829 - ELEVATED WHITE BLOOD CELL COUNT, UNSPECIFIED Status: Acute (3) Hyponatremia Code(s): E87.1 - HYPO-OSMOLALITY AND HYPONATREMIA Status: Acute (4) Otitis media Code(s): H66.90 - OTITIS MEDIA, UNSPECIFIED, UNSPECIFIED EAR Status: Acute Qualifiers: Laterality: bilateral Spontaneous tympanic membrane rupture: without spontaneous rupture (5) Hypokalemia with shifts of fluid from extracellular to intracellular space Code(s): E87.6 - HYPOKALEMIA Status: Acute (6) Diabetes mellitus type 1 Status: Acute - Plan Plan: 22YO female w/ a PMH significant for DMI and previous admissions for DKA who presented to the ED in DKA after being found down in her home. DKA: - Resolved, patient's AG closed overnight and her BG has been ranging between 100-200s since. - Will start on CC diet on home insulin dosing as described below. Will continue BG checks Q4H for now but consider changing to ACHS checks. - Will continue QD AM BMPs to monitor electrolytes. DMI: - A1c 13.5 which is not surprising due to parents's reports of multiple admissions for DKA since . - Will resume home meds today since patient is now off the insulin drip. Hypophosphatemia: - Phosphorus of 1.6 this AM. - Will replace with PO PhosNak and continue to monitor. KUSHAL: - Resolved. BUN/Cr down to 9/0.74 this AM. - Will consider stopping IVFs as patient is now tolerating PO. B/L Otitis Media: - PE on admission significant for B/L injected TMs L>R. - Will continue broad spectrum antibiotics for now as repeat procal this AM still high at 4.58. Will continue to trend and de-escalate abxs PRN based on procal. Leukocytosis with bandemia: - WBC has been trending down. Repeat pending this AM. - Will continue Zosyn and vancomycin for now. Repeat procalcitonin pending this AM. Will continue to trend and deescalate Abx therapy PRN based on procal. - Blood and urine cultures tentatively negative. Thrombocytosis: - Platelets elevated at 547 on presentation but WNLs this AM. - Likely also 2/2 volume depletion from DKA and/or acute phase reactant 2/2 infection. - Will continue to monitor w/ QD bloodwork. Polycythemia: - Resolved. H/H WNLs this AM. Likely 2/2 hemoconcentration from volume depletion due to DKA. Hypokalemia: - Resolved, K of 3.5 this AM. - Will continue to monitor with QD bloodwork and replace PRN. Hyperkalemia: - Resolved. - Will continue to monitor with QD bloodwork and correct PRN. Hypernatremia: - Resolved, Na of 139 this AM. - Will continue to monitor with QD labs. Addendum - Attending - Attending Attestation Date/Time: 02/25/181932 I personally evaluated the patient and discussed the management with Dr. Falcon and Dr. Morgan I agree with the History, Examination, Assessment and Plan documented above with any addition or exceptions noted below. 22 yo female with hx of IDDM (Type 1) admitted for severe DKA. HD#2 Feeling better. Pain in ears still present but improved. Now off insulin drip but has not been getting SQ insulin as ordered. Now glucose trending up. VS, labs, and imaging reviewed. 1. DKA: Severe. SQ insulin has not be re-started as ordered. Monitor glucose q 2 hours. Aggressive sliding scale. Trend BMPs and urine ketone. Monitor closely to prevent DKA. Continue IMCU monitoring. Follow up frequently throughout the day. Patient very brittle and easily converts to DKA. This is 3rd episode since January. Cultures pending but likely due to severe OM. Continue emperic antibiotics until cultures negative at 48 hours. Procal and WBCs improving. Trend and correct electrolyte and metabolic abnormalities DEVON. 2. T1DM: Notified floater operator of admission. Adjust basal insulin based on amount required by insulin drip. Continue carb ratio premeal and aggressive sliding scale post meal. 3. Bilateral OM with effusions: Continue Cefepime. Will transition to oral 3rd gen cephalosporin once cultures back to rule out any other complications. 4. KUSHAL: Pre-renal etiology. Improved. Dispo: Continue close monitoring in IMCU. Adjust SQ insulin throughout the day. Rajani
[2018-02-25] MEDS: Vancomycin HCl 1 GM in Premix Bag 1 BAG IVPB SCH (05:37)
[2018-02-25 05:52] LABS: Anion Gap 12 mmol/L (10-20); BUN (Urea Nitrogen) 9 mg/dL (7.0-18.7); Calc. Creatinine Clearance 105 mL/min (70-130); Calcium 8.8 mg/dL (7.8-10.44); Carbon Dioxide 18 mmol/L (22-29); Chloride 113 mmol/L (98-107); Estimated GFR-MDRD Greater than 90; Glucose 161 mg/dL (70-105); Magnesium 1.6 mg/dL (1.6-2.6); Phosphorus 1.6 mg/dL (2.3-4.7); Potassium 3.5 mmol/L (3.5-5.1); Sodium 139 mmol/L (136-145)
[2018-02-25] MEDS: Sodium Bicarbonate 150 MEQ in Sodium Chloride 0.45% 1,000 ML IV SCH ×3 (06:46→21:01)
[2018-02-25] MEDS ORDERED: Non-Formulary Item 1 EACH (Insulin Degludec [Tresiba Flextouch U-100] 30 UNIT) SQ SCH (09:00)
[2018-02-25] MEDS ORDERED: Insulin Glargine 30 UNITS in Pre-Filled Syringe 1 EACH SC SCH (09:00)
[2018-02-25] MEDS ORDERED: Insulin Glargine 5 UNITS in Pre-Filled Syringe 1 EACH SC SCH (09:15)
[2018-02-25] MEDS: HumaLOG 300 UNITS/3 ML VIAL SC SCH ×4 (09:18→17:36)
[2018-02-25] MEDS: Cefepime 1 GM in Sodium Chloride 0.9% 100 ML IVPB SCH (09:19)
[2018-02-25] MEDS: Pot Chloride/Pot Bicarb/Cit Ac 25 mEq Effervescent Tablet PO SCH ×2 (09:22→20:58)
[2018-02-25 09:26] LABS: #Basophils 0.1 thou/uL (0.0-0.2); #Eosinphils 0.2 thou/uL (0.0-0.7); #Lymphocytes 2.3 thou/uL (1.20-3.40); #Monocytes 0.7 thou/uL (0.11-0.59); #Neutrophils 6.8 thou/uL (1.40-6.50); %Basophils 0.9 % (0.0-1.0); %Eosinophils 1.9 % (0.0-10.0); %Monocytes 6.7 % (0.0-10.0); %Neutrophils 67.6 % (42.0-75.0); Hemoglobin 11.6 g/dL (12.0-16.0); Mean Corpuscular HGB CONC 35.4 g/dL (32.0-36.0); Mean Corpuscular Hemoglobin 31.8 pg (27.0-31.0); Mean Corpuscular Volume 89.9 fL (78.0-98.0); Mean Platelet Volume 8.3 fL (7.4-10.4); Platelet Count 185 thou/uL (130-400); RBC Distribution Width 14.9 % (11.5-14.5); Red Blood Cell (RBC) Count 3.65 mill/uL (4.20-5.40); White Blood Cell (WBC) Count 10.1 thou/uL (4.8-10.8)
--- NOTE | 2018-02-25 09:52 | PRG ---
DATE OF SERVICE: 02/25/2018 SUBJECTIVE: This morning, she is better, she is less short of breath. OBJECTIVE: VITAL SIGNS: Blood pressure 110\60_, sats 99%, respirations 16, temperature 98, and pulse 102. CHEST: Decreased breath sounds. No wheezing. CARDIAC: Normal S1 and S2. No gallops. ABDOMEN: No masses. LABORATORY DATA: Her lytes are normal. Blood sugar is 161, magnesium is 1.1, phosphorus is 1.6. IMPRESSION: 1. Diabetic ketoacidosis, improved. 2. Nausea and vomiting, resolved. 3. Leukocytosis, improved. PLAN: Continue antibiotics until tomorrow. If cultures negative, I would deescalate antibiotics. Continue home medication. Continue PT. We will follow while in the MICU. Job ID: [id number] [facility]
[2018-02-25] MEDS ORDERED: cefTRIAXone\\ROCEPHIN 1 GM in Sodium Chloride 0.9% 100 ML IVPB SCH (12:00)
[2018-02-25] MEDS ORDERED: HumaLOG 300 UNITS/3 ML VIAL SC PRN (14:21)
[2018-02-25] MEDS ORDERED: Dextrose 5% in Water 1,000 ML IV PRN (14:21)
[2018-02-25] MEDS ORDERED: Dextrose 50% Abboject 50 ML SYRINGE SLOW IVP PRN (14:21)
[2018-02-25] MEDS: Insulin Glargine 35 UNITS in Pre-Filled Syringe 1 EACH SC SCH (21:08)
[2018-02-26] MEDS: Sodium Bicarbonate 150 MEQ in Sodium Chloride 0.45% 1,000 ML IV SCH ×3 (02:22→17:12)
[2018-02-26 04:44] LABS: Anion Gap 14 mmol/L (10-20); BUN (Urea Nitrogen) 13 mg/dL (7.0-18.7); Calc. Creatinine Clearance 106 mL/min (70-130); Calcium 9.1 mg/dL (7.8-10.44); Carbon Dioxide 21 mmol/L (22-29); Chloride 108 mmol/L (98-107); Estimated GFR-MDRD Greater than 90; Glucose 148 mg/dL (70-105); Magnesium 1.7 mg/dL (1.6-2.6); Potassium 3.7 mmol/L (3.5-5.1); Sodium 139 mmol/L (136-145)
[2018-02-26 04:45] LABS: Phosphorus 2.9 mg/dL (2.3-4.7)
--- NOTE | 2018-02-26 05:38 | PDOC.FM ---
- Subjective Subjective: Patient states she feels better this AM. Does endorse some worsening ear pain in her B/L ears radiating into her jaws. Denies any ear discharge. Denies any N/ V or abdominal pain. - Objective MAR Reviewed: Yes Vital Signs & Weight: Vital Signs (12 hours) Temp Pulse Resp BP Pulse Ox 02/26/18 03:54 97.8 F 83 16 96/75 100 02/26/18 00:00 99.3 F 100 18 105/69 100 02/25/18 19:57 99.4 F 105 H 20 96/66 98 Weight Admit Weight 56.245 kg Weight 56.245 kg I&O: 02/24/18 02/25/18 02/26/18 06:59 06:59 06:59 Intake Total 3500 4900 1220 Output Total 2600 5950 1150 Balance 900 -1050 70 Result Diagrams: 02/25/18 04:59 02/27/18 06:17 Phys Exam - Physical Examination Constitutional: NAD HEENT: moist MMs, sclera anicteric Neck: supple, full ROM Respiratory: no wheezing, no rales, no rhonchi, clear to auscultation bilateral Cardiovascular: RRR, no significant murmur Gastrointestinal: soft, non-tender, no distention, positive bowel sounds Neurological: non-focal, moves all 4 limbs Psychiatric: normal affect, A&O x 3 Skin: no rash, normal turgor Dx/Plan (1) DKA (diabetic ketoacidoses) Code(s): E13.10 - OTH DIABETES MELLITUS WITH KETOACIDOSIS WITHOUT COMA Status : Acute Qualifiers: Diabetes mellitus type: type 1 Diabetes mellitus complication detail: without coma Qualified Code(s): E10.10 - Type 1 diabetes mellitus with ketoacidosis without coma (2) Leukocytosis Code(s): D72.829 - ELEVATED WHITE BLOOD CELL COUNT, UNSPECIFIED Status: Acute (3) Hyponatremia Code(s): E87.1 - HYPO-OSMOLALITY AND HYPONATREMIA Status: Acute (4) Otitis media Code(s): H66.90 - OTITIS MEDIA, UNSPECIFIED, UNSPECIFIED EAR Status: Acute Qualifiers: Laterality: bilateral Spontaneous tympanic membrane rupture: without spontaneous rupture (5) Hypokalemia with shifts of fluid from extracellular to intracellular space Code(s): E87.6 - HYPOKALEMIA Status: Acute (6) Diabetes mellitus type 1 Status: Acute - Plan Plan: 22YO female w/ a PMH significant for DMI and previous admissions for DKA who presented to the ED in DKA after being found down in her home. DMI: - A1c 13.5 which is not surprising due to parents's reports of multiple admissions for DKA since . - Will consider slightly increasing patient's basal insulin as BG levels are still regularly in the 200 to high 100 range. Also adjusted her mealtime dosing to 1 unit for every 8g of carbs and 1 unit for every 40 BG points above 120 rather than every 80 points above it. - Will continue CC diet and consider increasing frequency of BG checks to Q4H from Q2H if BG stays in current range. DKA: - Resolved, patient's AG closed on 02/24 and her BG has been ranging between 100 -200s since. - Will continue QD AM BMPs to monitor electrolytes. Hypophosphatemia: - Resolved with a Phosphorus of 2.9 this AM. - Will replace PRN and continue to monitor. KUSHAL: - Resolved. BUN/Cr WNLs at 13/0.73 this AM. - Will consider stopping IVFs as patient is now tolerating PO. B/L Otitis Media: - PE on admission significant for B/L injected TMs L>R. - De-escalated abxs to IV Rocephin yesterday as procal & WBC have downtrended. Leukocytosis with bandemia: - WBC WNLs yesterday morning. - Transitioned to IV Rocephin for otitis media. Will consider transitioning to PO antibiotics today. - Blood and urine cultures tentatively negative. Thrombocytosis: - Platelets WNLs last 2 days. - Likely also 2/2 volume depletion from DKA and/or acute phase reactant 2/2 infection. - Will continue to monitor w/ QD bloodwork. Polycythemia: - Resolved. H/H WNLs this AM. Likely 2/2 hemoconcentration from volume depletion due to DKA. Hypokalemia: - Resolved, K of 3.7 this AM. - Will continue to monitor with QD bloodwork and replace PRN. Hyperkalemia: - Resolved. - Will continue to monitor with QD bloodwork and correct PRN. Hypernatremia: - Resolved, Na of 139 this AM. - Will continue to monitor with QD labs. Dispo: Possible d/c later today or tomorrow morning if BG remains stable. Addendum - Attending - Attending Attestation Date/Time: 03/01/181938 I personally evaluated the patient and discussed the management with Dr. Falcon and Dr. Morgan I agree with the History, Examination, Assessment and Plan documented above with any addition or exceptions noted below. 22 yo female with hx of IDDM (Type 1) admitted for severe DKA. HD#3 Feeling better. Pain in ears worsen. Now back to baseline. VS, labs, and imaging reviewed. 1. DKA: Severe. Resolved. Patient very brittle and easily converts to DKA. This is 3rd episode since January. Due to severe OM. Cultures negative. De-escalate antibiotics. May transfer to medical. 2. T1DM: Notified breakfast cook of admission. Continue to adjust basal insulin.. Continue carb ratio premeal and aggressive sliding scale post meal. 3. Bilateral OM with effusions: Transition to oral 3rd gen cephalosporin. Follow up with ENT outpatient. Procal improving. 4. KUSHAL: Pre-renal etiology. Improved. Dispo: Monitor on medical. Continue to improve and adjust basal insulin. Rajani
[2018-02-26] MEDS: HumaLOG 300 UNITS/3 ML VIAL SC SCH ×4 (07:28→21:26)
[2018-02-26] MEDS ORDERED: Acetaminophen 325 MG TAB PO PRN (07:58)
[2018-02-26] MEDS ORDERED: Ibuprofen 600 MG TAB PO PRN (07:59)
[2018-02-26] MEDS: Pot Chloride/Pot Bicarb/Cit Ac 25 mEq Effervescent Tablet PO SCH ×2 (08:30→21:32)
[2018-02-26] MEDS: Insulin Glargine 35 UNITS in Pre-Filled Syringe 1 EACH SC SCH ×2 (08:31→21:28)
--- NOTE | 2018-02-26 09:56 | PRG ---
DATE OF SERVICE: SUBJECTIVE: This morning, she is awake and responsive. OBJECTIVE: VITAL SIGNS: Saturation 100% on room air, pulse 103, temperature 99, blood pressure 112/73. GENERAL: Awake, alert, and responsive. No discomfort. No pain. CHEST: Decreased breath sounds. No wheezing. CARDIAC: Normal S1 and S2. No gallops. ABDOMEN: No masses. LABORATORY DATA: Blood sugar is 111. Bicarb is 21. Last white count 10,000. All cultures are negative. IMPRESSION: 1. Status post diabetic ketoacidosis, resolved. 2. Leukocytosis, improved. PLAN: Continue insulin as prescribed. Switch over to oral antibiotics. DISPOSITION: Home any time in next 24 to 48 hours. Job ID: [id number]
[2018-02-26] MEDS ORDERED: Magnesium 2 GM/50 ML 2 GM in Premix Bag 1 BAG IVPB SCH (10:15)
[2018-02-27] MEDS: Sodium Bicarbonate 150 MEQ in Sodium Chloride 0.45% 1,000 ML IV SCH ×2 (01:55→07:56)
--- NOTE | 2018-02-27 05:57 | PDOC.FM ---
- Subjective Subjective: Patient reports feeling bad this AM when her BG was 75. Says she broke out in a cold sweat and "felt ." Is frustrated about her not having total control over pre-meal insulin regimen. Is anxious to go home today. Says ears feel full but they did not hurt last night. - Objective MAR Reviewed: Yes Vital Signs & Weight: Vital Signs (12 hours) Temp Pulse Resp BP Pulse Ox 02/27/18 04:00 96.8 F L 87 16 110/73 99 02/27/18 00:00 98.3 F 85 16 105/71 98 02/26/18 20:00 98.9 F 94 16 110/78 99 Weight Admit Weight 56.245 kg Weight 56.245 kg I&O: 02/25/18 02/26/18 02/27/18 06:59 06:59 06:59 Intake Total 4900 1720 180 Output Total 5950 2050 Balance -1050 -330 180 Result Diagrams: 02/25/18 04:59 02/27/18 06:17 Phys Exam - Physical Examination Constitutional: NAD HEENT: moist MMs Neck: supple, full ROM Respiratory: no wheezing, no rales, no rhonchi, clear to auscultation bilateral Cardiovascular: RRR, no significant murmur Gastrointestinal: no distention Neurological: non-focal, moves all 4 limbs Psychiatric: normal affect, A&O x 3 Skin: no rash, normal turgor Dx/Plan (1) DKA (diabetic ketoacidoses) Code(s): E13.10 - OTH DIABETES MELLITUS WITH KETOACIDOSIS WITHOUT COMA Status : Acute Qualifiers: Diabetes mellitus type: type 1 Diabetes mellitus complication detail: without coma Qualified Code(s): E10.10 - Type 1 diabetes mellitus with ketoacidosis without coma (2) Leukocytosis Code(s): D72.829 - ELEVATED WHITE BLOOD CELL COUNT, UNSPECIFIED Status: Acute (3) Hyponatremia Code(s): E87.1 - HYPO-OSMOLALITY AND HYPONATREMIA Status: Acute (4) Otitis media Code(s): H66.90 - OTITIS MEDIA, UNSPECIFIED, UNSPECIFIED EAR Status: Acute Qualifiers: Laterality: bilateral Spontaneous tympanic membrane rupture: without spontaneous rupture (5) Hypokalemia with shifts of fluid from extracellular to intracellular space Code(s): E87.6 - HYPOKALEMIA Status: Acute (6) Diabetes mellitus type 1 Status: Acute - Plan Plan: 22YO female w/ a PMH significant for DMI and previous admissions for DKA who presented to the ED in DKA after being found down in her home. DMI: - A1c 13.5 which is not surprising due to parents's reports of multiple admissions for DKA since . - Will increase patient's basal insulin to 40 units QAM and 35 units QHS as BG levels are still regularly in the 200 to high 100 range. Will continue mealtime dosing at 1 unit for every 8g of carbs and 1 unit for every 40 BG points above 120. - Will continue CC diet and continue ACHS BG checks. DKA: - Resolved, patient's AG closed on 02/24 and her BG has been ranging between 100 -200s since. - Will continue QD AM BMPs to monitor electrolytes. hypomagnesemia: - Mg low at 1.7 yesterday AM. Replaced with 2g IV. - Repeat pending this AM. Hypophosphatemia: - Resolved with a Phosphorus of 2.9 this AM. - Will replace PRN and continue to monitor. KUSHAL: - Resolved. BUN/Cr WNLs at 13/0.73 this AM. - Will consider stopping IVFs as patient is now tolerating PO. B/L Otitis Media: - PE on admission significant for B/L injected TMs L>R. - De-escalated abxs to PO omnicef yesterday. - Will add steroid nasal spray and PO antihistamine as well to help reduce mucosal edema and allow better drainage in middle ears. Leukocytosis with bandemia: - WBC WNLs yesterday morning. - Transitioned to PO omnicef for otitis media. - Blood and urine cultures tentatively negative. Thrombocytosis: - Platelets WNLs last 2 days. - Likely also 2/2 volume depletion from DKA and/or acute phase reactant 2/2 infection. - Will continue to monitor w/ QD bloodwork. Polycythemia: - Resolved. H/H WNLs this AM. Likely 2/2 hemoconcentration from volume depletion due to DKA. Hypokalemia: - Resolved, K of 3.7 this AM. - Will continue to monitor with QD bloodwork and replace PRN. Hyperkalemia: - Resolved. - Will continue to monitor with QD bloodwork and correct PRN. Hypernatremia: - Resolved, Na of 139 this AM. - Will continue to monitor with QD labs. Dispo: Likely d/c home later today if BG remains stable. Addendum - Attending - Attending Attestation Date/Time: 02/27/181942 I personally evaluated the patient and discussed the management with Dr. Falcon and Dr. Morgan I agree with the History, Examination, Assessment and Plan documented above with any addition or exceptions noted below. 22 yo female with hx of IDDM (Type 1) admitted for severe DKA. HD#4 Pain to ears improved. Glucose improving. VS, labs, and imaging reviewed. 1. DKA: Severe. Resolved. Patient very brittle and easily converts to DKA. This is 3rd episode since January. Due to severe OM. Patient to follow up closely with endo once d/c'ed. 2. T1DM: Notified machine ii cutter of admission. Continue to adjust basal insulin at home. Continue carb ratio premeal and aggressive sliding scale post meal. 3. Bilateral OM with effusions: Tolerating oral 3rd gen cephalosporin. Follow up with ENT outpatient. Pain improving. Started local steroid which improved symptoms. 4. KUSHAL: Pre-renal etiology. Resolved. Dispo: Okay to d/c to home. Follow up with PCP, endo, and ENT. Rajani
[2018-02-27 07:38] LABS: Anion Gap 18 mmol/L (10-20); BUN (Urea Nitrogen) 18 mg/dL (7.0-18.7); Calc. Creatinine Clearance 101 mL/min (70-130); Calcium 9.1 mg/dL (7.8-10.44); Carbon Dioxide 23 mmol/L (22-29); Chloride 102 mmol/L (98-107); Estimated GFR-MDRD Greater than 90; Glucose 217 mg/dL (70-105); Magnesium 1.9 mg/dL (1.6-2.6); Potassium 3.9 mmol/L (3.5-5.1); Sodium 139 mmol/L (136-145)
[2018-02-27] MEDS: HumaLOG 300 UNITS/3 ML VIAL SC SCH ×2 (07:48→11:27)
[2018-02-27] MEDS: Insulin Glargine 35 UNITS in Pre-Filled Syringe 1 EACH SC SCH (08:43)
[2018-02-27] MEDS ORDERED: Fluticasone Propionate Nasal Spray 16 gm Bottle NASAL SCH (09:00)
[2018-02-27] MEDS ORDERED: Insulin Glargine 40 UNITS in Pre-Filled Syringe 1 EACH SC SCH ×2 (09:00→21:00)
[2018-02-27] MEDS ORDERED: Loratadine 10 MG TAB PO SCH (09:00)
[2018-02-27] MEDS ORDERED: Cefdinir 300 MG CAP PO SCH (09:00)
[2018-02-27] MEDS ORDERED: Insulin Glargine 5 UNITS in Pre-Filled Syringe 1 EACH SC SCH (09:45)
[2018-02-27 11:15] VITALS: BP 111/71; TEMP 98.4
[2018-02-27] MEDS: Pot Chloride/Pot Bicarb/Cit Ac 25 mEq Effervescent Tablet PO SCH (11:27)
--- NOTE | 2018-03-01 13:01 | DIS ---
DATE OF ADMISSION: 02/23/2018 DATE OF DISCHARGE: 02/27/2018 RESIDENT: Dior Falcon MD ADMITTING ATTENDING: Orlando An MD DISCHARGE ATTENDING: Fay Wilkins MD CONSULTS: Pulmonology, Dr. Salmon. PROCEDURES: 1. Chest x-ray on 02/23/2018, which showed no acute intrathoracic process. 2. Abdomen x-ray on 02/23/2018, which was negative for any air-fluid level, free air, or signs of bowel obstruction. PRIMARY DIAGNOSES: 1. Diabetic ketoacidosis. 2. Hyperkalemia. 3. Leukocytosis. 4. Polycythemia. 5. Thrombocytosis. 6. Hypomagnesemia. 7. Hypophosphatemia. 8. Acute kidney injury. 9. Metabolic acidosis. 10. Hyponatremia. 11. Bilateral otitis media. SECONDARY DIAGNOSIS: Diabetes mellitus, type 1. DISCHARGE MEDICATIONS: 1. Acetaminophen 650 mg p.o. every 6 hours p.r.n. for pain. 2. Omnicef 300 mg capsules 600 mg p.o. daily for 12 days. 3. Zyrtec 10 mg p.o. daily. 4. Fluticasone propionate 1 spray nasally daily. 5. Ibuprofen 600 mg p.o. every 6 hours p.r.n. for pain and fever. 6. Tresiba FlexTouch 100 units/mL, 35 units subcu q.p.m. 7. Tresiba 100 units/mL insulin pen, 40 units subcu q.a.m. 8. Humalog 100 units/mL vial sliding scale, give 1 unit for every 8 g of carbs and 1 unit for every 40 points above 120 blood glucose level. DISCONTINUED MEDICATIONS: 1. NPH 300 units/3 mL vial, 12 units subcu q.a.m. 2. Tresiba 28 units subcu daily. HOSPITAL COURSE: The patient is a 22-year-old female with a past medical history significant for type 1 diabetes and per the patient's parents a history of 3 hospital admissions for episodes of diabetic ketoacidosis since this ving, who was brought to the emergency department after being found down in her home by a friend after being late for work the morning of presentation. Upon arrival to the emergency department, the patient was noted to be slightly altered with an initial GCS score of 14, losing points for verbal response & spontaneous eye opening. She was also noted to be tachycardiac into the 120s and tachypneic with the respiratory rate of 28 as well as hypothermic with a temperature of 94.8 taken rectally. However, she was saturating 100% on room air. Routine blood work was obtained including a BMP, which was significant for sodium level of 126, potassium of 5.8, chloride 96, and bicarb level less than 8. She also had an elevated BUN and creatinine of 29 and 1.74 with a significantly elevated blood glucose level of 707. Her white blood count was also significantly elevated at 52.8 with 44 bands and 27 neutrophils. A chest x-ray, urinalysis, and blood and urine cultures were also obtained to rule out any infectious etiology, which could explain why the patient presented in diabetic ketoacidosis. Before being moved to the [facility], the patient was given 2 L of normal saline, 2 L of lactated Ringer's, 4 mg of IV Zofran, 4.5 g of IV Zosyn, 2 boluses of IV Novolin and was then started on a Novolin drip at 0.1 units/kg/ hour and started on the DKA protocol. Once the patient was moved to the [facility], an arterial blood gas was obtained, which was consistent with severe metabolic acidosis showing a pH of 7.04, a pCO2 of 9.8, a pO2 of 114.3, base excess of -25.8. The patient remained on the insulin drip overnight and by the morning, it was noted that her serum potassium level had dropped significantly to 2.8. She was therefore taken off the insulin drip and transitioned to half normal saline with 40 mEq of IV potassium and started on long-acting insulin at 25 units b.i.d. However, it was noted throughout the course of second day of hospitalization that the patient's blood glucose levels continued to rise as high as 342. It was therefore decided to place her back on an insulin drip while continuing to receive IV fluids with 40 mEq of potassium. Later that day around 7:00 p.m. the insulin drip was finally discontinued and the patient remained on IV fluids and was restarted on long-acting and meal-time insulin. The following morning, the patient was transitioned to her home dosing including 30 units of long-acting insulin b.i.d. and Humalog before meals. Her home insulin dosing was adjusted over the course of the week until the patient reached a level at which her blood sugars were adequately controlled which included 40 units of long-acting insulin in the morning and only 35 units at night. Her sliding- scale insulin was also increased to 1 unit for every 8 g of carbs and 1 unit for every 40 points rather than 80 above 120. Regarding the patient's significantly elevated white blood cell count and the possibility of sepsis and infection, the patient's white blood cell count gradually decreased over the course of her hospitalization after aggressive IV fluid resuscitation. Her blood cultures and urine cultures were also negative for any infectious etiology. However, it was noted that the patient had bilateral otitis media on examination in the emergency department. She was therefore continued on IV vancomycin and Zosyn for 2 days, then transitioned to IV Rocephin for 1 day and eventually deescalated to p.o. antibiotics with Omnicef which she was discharged home on. She was instructed to follow up with an Ear, Nose and Throat doctor upon discharge as she will most likely need tympanostomy tubes placed due to her inability to clear ear infections since gi. Regarding the patient's electrolyte and other lab abnormalities, the patient's sodium level returned to be within normal limits once her diabetic ketoacidosis was corrected. Her potassium, magnesium, and phosphate were also replaced as needed for the duration of her hospital stay and by the date of discharge, all were within normal limits. In addition, her polycythemia and thrombocytosis corrected as well after several days of aggressive IV fluid resuscitation, leading us to believe that they were elevated secondary to the stress of being in diabetic ketoacidosis. DISPOSITION: Stable. DISCHARGE INSTRUCTIONS: 1. Location: Home. 2. Diet: Diabetic diet. 3. Activity: Activity as tolerated. No restrictions. 4. Followup: The patient was instructed to follow up with her polysomnographic technologist, Dr. Herrera within 1 week of discharge. She was also instructed to make an appointment with an Ear, Nose, and Throat specialist for evaluation of recurrent bilateral ear infections. Job ID: [id number] [facility]
== END 2018-02-27 13:00 | disposition home or self-care (01) | DRG 637 ==
LOC: ERS 09:59 → IMCU/EMU 15:14 → T4-B 02-26 14:12
PROVIDERS: ADMIT Family Medicine; ATTEND Family Medicine
DX: E10.10 Type 1 diabetes mellitus with ketoacidosis without coma (principal); G93.41 Metabolic encephalopathy; E87.1 Hypo-osmolality and hyponatremia; N17.9 Acute kidney failure, unspecified; R65.10 Systemic inflammatory response syndrome (SIRS) of non-infectious origin without acute organ dysfunction; E87.5 Hyperkalemia; D47.3 Essential (hemorrhagic) thrombocythemia; D75.1 Secondary polycythemia; E83.42 Hypomagnesemia; E83.39 Other disorders of phosphorus metabolism; H66.93 Otitis media, unspecified, bilateral; Z79.4 Long term (current) use of insulin
CPT/HCPCS: 36415; 36416; 51701; 71045; 74018; 80048; 80053; 80306; 81003; 81015; 82010; 82330; 82803; 82805; 83036; 83605; 83735; 84100; 84145; 84703; 85025; 85060; 87040; 87086; 87804; 93005; 96361; 96365; 96366; 96375; 99292; A4353; G8978-GP-CJ; G8979-GP-CJ; G8980-GP-CJ; J0692; J0696; J1815; J2405; J2543; J2550; J3370; J3475; J3480; J7050; J7070

== ENCOUNTER 2018-07-03 07:17 | Inpatient (IN) | payer OTHER ==
[2018-07-03] MEDS ORDERED: Pantoprazole 40 MG VIAL ONE (07:39)
[2018-07-03] MEDS ORDERED: Sodium Bicarb 50 MEQ/50 ML Abboject 8.4% SYRINGE ONE ×2 (07:40→10:44)
[2018-07-03 07:57] LABS: BHCG - Serum Negative (NEGATIVE); Pregs Control Background? CLEAR/WHITE (CLR/WHITE); Pregs Control Bar Appear? YES (CONTROL BAR)
[2018-07-03 08:05] LABS: Band 15 % (5-11); Eosinophils 1 % (0-10); Hemoglobin 16.6 g/dL (12.0-16.0); Lymphocytes 35 % (21-51); MDiff Complete? YES; Mean Corpuscular HGB CONC 33.2 g/dL (32.0-36.0); Mean Corpuscular Hemoglobin 30.6 pg (27.0-31.0); Mean Corpuscular Volume 92.1 fL (78.0-98.0); Mean Platelet Volume 8.1 fL (7.4-10.4); Monocytes 4 % (0-10); Myelocyte 1 % (0-0); Neutrophil 44 % (42-75); Platelet Count 469 thou/uL (130-400); Platelet Morphology Comment Appears Increased; RBC Distribution Width 13.2 % (11.5-14.5); RBC Morphology Normal; Red Blood Cell (RBC) Count 5.43 mill/uL (4.20-5.40); White Blood Cell (WBC) Count 25.2 thou/uL (4.8-10.8)
[2018-07-03 08:09] LABS: ALT (SGPT) 15 U/L (8-55); AST (SGOT) 12 U/L (5-34); Acetaminophen Less than 6.0 mcg/mL (10.0-30.0); Albumin 4.5 g/dL (3.5-5.0); Alcohol Less than 10 mg/dL (Less than 10); Alkaline Phosphatase 214 U/L (40-150); BUN (Urea Nitrogen) 22 mg/dL (7.0-18.7); Bilirubin, Total 0.2 mg/dL (0.2-1.2); CK (CPK) 39 U/L (29-168); Calc. Creatinine Clearance 0 mL/min (70-130); Calcium 10.4 mg/dL (7.8-10.44); Chloride 101 mmol/L (98-107); Estimated GFR-MDRD 38; Globulin 4.5 g/dL (2.4-3.5); Potassium 5.2 mmol/L (3.5-5.1); Salicylate Less than 8.0 mg/dL (15.0-30.0); Sodium 132 mmol/L (136-145)
[2018-07-03 08:13] LABS: Carbon Dioxide Less than 8 mmol/L (22-29); Glucose 702 mg/dL (70-105)
[2018-07-03 08:25] LABS: Bilirubin Negative (Negative); Blood, Urine Large (Negative); Clarity CLEAR (Clear); Glucose, Urine (Dipstick) >=1000 mg/dL (Negative); Leukocyte Negative (Negative); Nitrite Negative (Negative); Protein, Urine (Dipstick) 30 mg/dL (Neg-Trace); Specific Gravity, Urine 1.021 (1.002-1.036); Urobilinogen 0.2 mg/dL (0.2-1.0)
[2018-07-03 08:27] LABS: Bacteria/HPF None Seen HPF (None Seen); Hyaline Casts/LPF 7-10 HYALINE CAST LPF (0-3 Hyaline); Pathc Cast-AUWi Flag 1.63 (0-2.49); Squamous Epithelial 0-3 HPF (0-3); WBC/HPF 0-3 HPF (0-3)
[2018-07-03 08:36] LABS: Amphetamine Not Detected (NotDetected); Barbiturates Screen Not Detected (NotDetected); Benzodiazepine Screen Not Detected (NotDetected); Cocaine Metabolite Screen Not Detected (NotDetected); Medtox Reader # READER 1; Methadone Not Detected (NotDetected); Methamphetamine Not Detected (NotDetected); Opiate Screen Not Detected (NotDetected); Oxycodone Screen Not Detected (NotDetected); Phencyclidine (PCP) Not Detected (NotDetected); THC/Cannabinoid Screen Not Detected (NotDetected); Tricyclic Screen Not Detected (NotDetected)
[2018-07-03 08:37] LABS: Medtox Control Line Valid? VALID (VALID)
[2018-07-03] MEDS ORDERED: Lorazepam 2 MG/ML VIAL ONE (08:54)
[2018-07-03] MEDS ORDERED: Insulin Regular 300 UNITS/3 ML VIAL ONE (08:54)
[2018-07-03] MEDS ORDERED: Insulin Regular 100 units/100 ml in NS IVPB SCH (09:00)
[2018-07-03 10:22] LABS: Actual Bicarbonate (HCO3a) 1.3 mEq/L (22-28); Analyzer IN Cardio ER; Calcium, Ionized 1.41 mmol/L (1.12-1.30); Hemoglobin (Hb) 16.1 g/dL (12.0-16.0); O2 Tension (PaO2) 147.6 mmHg (80.0-100.0); Potassium - ABG Lab 4.44 mmol/L (3.70-5.30)
[2018-07-03 10:25] LABS: pH, Arterial 6.81 (7.35-7.45)
[2018-07-03 10:26] LABS: Base Excess (BEa) -32.2 mEq/L (-2.0 to +3.0); CO2 Tension 8.6 mmHg (35.0-45.0); Puncture Site LRA
[2018-07-03] MEDS ORDERED: SODIUM CHLORIDE 0.9% IV SCH (10:30)
[2018-07-03] MEDS ORDERED: SODIUM BICARBONATE IV SCH ×2 (10:30→11:00)
[2018-07-03] MEDS ORDERED: SODIUM CHLORIDE 0.45% IV SCH (11:00)
[2018-07-03] MEDS ORDERED: NS 0.9% w/ 20 MEQ KCL 1,000 ML IV PRN ×2 (11:12)
[2018-07-03] MEDS ORDERED: D5 1/2 NS w/20 mEq KCL 1,000 ML IV PRN (11:12)
[2018-07-03] MEDS ORDERED: Sodium Chloride 0.9% 1,000 ML IV PRN ×4 (11:12)
[2018-07-03] MEDS ORDERED: Dextrose 5 %-0.45 % NaCl 1,000 ML IV PRN (11:12)
[2018-07-03] MEDS ORDERED: CCU Electrolyte Replacement 1 EACH IVPB ONE (11:12)
[2018-07-03] MEDS ORDERED: HUMULIN R 100 UNITS in Sodium Chloride 0.9% 100 ML IVPB SCH (11:15)
[2018-07-03] MEDS ORDERED: Potassium Phosphate 12 MMOL in Sodium Chloride 0.9% 250 ML 250 ML IV PRN (11:27)
[2018-07-03] MEDS ORDERED: Potassium Chloride 40 MEQ in Sodium Chloride 0.9% 250 ML 250 ML IVPB PRN (11:27)
[2018-07-03] MEDS ORDERED: Magnesium Oxide 400 MG TAB PO PRN ×2 (11:27)
[2018-07-03] MEDS ORDERED: CCU ELECTROLYTE REPLACEMENT PROTOCOL FS PRN (11:27)
[2018-07-03] MEDS ORDERED: Magnesium 2 GM/50 ML 2 GM in Premix Bag 1 BAG IVPB PRN (11:27)
[2018-07-03] MEDS ORDERED: Potassium Phosphate 15 MMOL in Sodium Chloride 0.9% 250 ML 250 ML IV PRN (11:27)
[2018-07-03] MEDS ORDERED: Potassium Chloride 20 MEQ TAB PO PRN (11:27)
[2018-07-03] MEDS ORDERED: Potassium Phosphate 9 MMOL in Sodium Chloride 0.9% 100 ML IVPB PRN (11:27)
[2018-07-03] MEDS ORDERED: Potassium Chloride 40 MEQ in Premix Bag 1 BAG IVPB PRN (11:27)
[2018-07-03] MEDS ORDERED: PHOS-NAK 1 PKT PACK PO PRN ×2 (11:27)
[2018-07-03 12:27] LABS: BUN (Urea Nitrogen) 19 mg/dL (7.0-18.7); Calc. Creatinine Clearance 0 mL/min (70-130); Calcium 9.4 mg/dL (7.8-10.44); Carbon Dioxide Less than 8 mmol/L (22-29); Chloride 114 mmol/L (98-107); Estimated GFR-MDRD 46; Glucose 415 mg/dL (70-105); Potassium 4.7 mmol/L (3.5-5.1); Sodium 142 mmol/L (136-145)
[2018-07-03] MEDS ORDERED: Ondansetron ODT 4 MG TAB PO PRN (12:27)
[2018-07-03] MEDS ORDERED: Acetaminophen 325 MG TAB PO PRN (12:27)
[2018-07-03] MEDS ORDERED: Ondansetron PF 4 MG/2 ML Vial IVP PRN (12:27)
--- NOTE | 2018-07-03 12:46 | RAD ---
Exam: Chest one view HISTORY:Shortness of breath. Diabetic ketoacidosis. Comparison: 02/23/2018 FINDINGS: Cardiac silhouette: Normal Pulmonary vessels: Normal Costophrenic angles: Clear LUNGS: No masses or consolidation. Pneumothorax: None Osseous abnormalities: None IMPRESSION: No acute cardiopulmonary process.
[2018-07-03 13:22] VITALS: BMI 24.0
[2018-07-03] MEDS ORDERED: 1/2 NS w/KCL 20 mEq 1,000 ML IV SCH (13:30)
--- NOTE | 2018-07-03 15:14 | HP ---
CHIEF COMPLAINT: Shortness of breath. HISTORY OF PRESENT ILLNESS: This patient is a 22-year-old female with a history of diabetes mellitus, who has had 3 prior admissions to this facility for diabetic ketoacidosis. The patient presented to the emergency room indicating that she was having difficulty breathing. She thought she likely had DKA. EMS was actually initially called and her blood sugar was 468. She reported that she had been taking her insulin and only felt ill for about 1 day. Currently, the patient is having a little bit of difficulty talking, partly due to acidosis and she also received a milligram of Ativan here in the Emergency Department. She has a good friend, who is with her, who states the patient had done fine up to that time and had no other problems. There was a co-worker diagnosed with influenza on Friday, but the patient had apparently felt fine subsequent. PAST MEDICAL HISTORY: Diabetes mellitus and several rounds of diabetic ketoacidosis. PAST SURGICAL HISTORY: From the record, appendectomy at age 15. FAMILY HISTORY: Father had colorectal cancer. SOCIAL HISTORY: Again from the patient's records, the patient has no history of alcohol, drug, or tobacco abuse. REVIEW OF SYSTEMS: Unobtainable at the moment as the patient is not speaking much and very tachypneic. PHYSICAL EXAMINATION: VITAL SIGNS: On arrival; BP 154/105, pulse 141, respirations 28, and O2 saturation 98% on room air. Most recent vitals; BP 141/105, pulse 137, respirations 32, and O2 saturations 100% on room air. GENERAL APPEARANCE: The patient is a bit somnolent and groggy. She will make eye contact, but is not speaking much. She is in some mild respiratory distress. HEENT: Pupils are sluggish, but reactive. She has no OP lesions. Very dry oral mucosa. HEART: Tachycardic without murmurs, gallops, or rubs. LUNGS: Clear to auscultation bilaterally with good chest wall expansion and air exchange, again very tachypneic. ABDOMEN: Soft and nondistended. Positive bowel sounds. No evidence of tenderness to palpation. EXTREMITIES: No cyanosis, clubbing, or edema. SKIN: She has some mottling around the knees and slightly cool to touch. PSYCH: As above. The patient is somnolent and groggy. NEURO: The patient appears to be moving all extremities spontaneously. LABORATORY DATA: White count is 25.2, hemoglobin 16.6, and platelets 469. She has a 15% bands. Sodium 132, potassium 5.2, chloride 101, CO2 less than 8, BUN is 22, creatinine 1.68, glucose was 702, lactic acid 1.5, calcium 10.4, AST 12, ALT 15, and alkaline phosphatase 214. Troponin less than 0.01. Serum test is negative. Urinalysis shows large glucose and large ketones, large blood, no significant white cells noted, and 4 to 6 red cells. Drug screen negative. Beta-hydroxybutyrate 14.78. Plasma alcohol less than 10. Influenza screen negative. ABG; pH is 6.8, pCO2 is 8.6, and pO2 is 148. IMPRESSION AND PLAN: Diabetic ketoacidosis. Does not appear to be in any obvious underlying source of infection. However, the patient has a significant white count, which can occur with diabetic ketoacidosis, but also has some bandemia. We will therefore go ahead and get a chest x-ray. The patient is started on insulin drip. She has received 3 L of fluid in the Emergency Department. We will continue fluids per the diabetic ketoacidosis protocol. She has severe acidosis and has received 2 amps of bicarb. She has also been given 6 units of insulin followed by 6 units/hour on the drip. We will follow fluid, insulin, and labs per the diabetic ketoacidosis protocol. The patient will also have deep venous thrombosis and gastrointestinal prophylaxis. We will consult Pulmonary/Critical Care. Given the severe acidosis, the patient may need intubation. TIME SPENT: Total critical care time was 35 minutes. Job ID: [id number]
[2018-07-03] MEDS ORDERED: D5 1/2 NS w/20 mEq KCL 1,000 ML ONE (15:47)
[2018-07-03 15:56] LABS: BUN (Urea Nitrogen) 16 mg/dL (7.0-18.7); Calc. Creatinine Clearance 65 mL/min (70-130); Calcium 9.2 mg/dL (7.8-10.44); Chloride 118 mmol/L (98-107); Estimated GFR-MDRD 56; Glucose 203 mg/dL (70-105); Potassium 4.4 mmol/L (3.5-5.1); Sodium 147 mmol/L (136-145)
[2018-07-03 15:58] LABS: Carbon Dioxide Less than 8 mmol/L (22-29)
[2018-07-03] MEDS ORDERED: D5 1/2 NS w/20 mEq KCL 1,000 ML IV SCH (16:00)
[2018-07-03 16:37] LABS: Actual Bicarbonate (HCO3a) 2.9 mEq/L (22-28); Base Excess (BEa) -25.9 mEq/L (-2.0 to +3.0); Calcium, Ionized 1.39 mmol/L (1.12-1.30); Carboxyhemoglobin (COHb) 0.2 gm% (0.0-3.0); Hemoglobin (Hb) 14.7 g/dL (12.0-16.0); O2 Tension (PaO2) 131.7 mmHg (80.0-100.0); Potassium - ABG Lab 4.08 mmol/L (3.70-5.30)
[2018-07-03 16:39] LABS: CO2 Tension 11.2 mmHg (35.0-45.0); Puncture Site RRA; pH, Arterial 7.03 (7.35-7.45)
[2018-07-03 19:41] LABS: BUN (Urea Nitrogen) 14 mg/dL (7.0-18.7); Calc. Creatinine Clearance 69 mL/min (70-130); Calcium 9.2 mg/dL (7.8-10.44); Chloride 121 mmol/L (98-107); Estimated GFR-MDRD 61; Glucose 139 mg/dL (70-105); Potassium 4.2 mmol/L (3.5-5.1); Sodium 148 mmol/L (136-145)
--- NOTE | 2018-07-03 19:45 | CON ---
DATE OF CONSULTATION: 07/03/2018 SERVICE: Pulmonary Medicine. REASON FOR CONSULTATION: ICU patient. HISTORY OF PRESENT ILLNESS: The patient is a 22-year-old white female with past medical history significant for type 1 diabetes mellitus. She was in her usual state of health until Friday. She started having increased abdominal discomfort , polyuria, polydipsia, and increasing shortness of breath. Ultimately, she presented to the emergency department for all of these symptoms, which slowly progressed over this period of time. She denies any fevers or chills. She was not coughing up any phlegm, and denies having diarrhea or significant vomiting. She does not have any hot, red, swollen joints, or any rashes. She indicates she is not . She is currently on her period. In the emergency department, she got multiple liters of fluid and was started on insulin drip. Her respirations were originally in the upper 40s and low 50s. These are settling down dramatically, the patient indicates that her shortness of breath is improved significantly. Her heart rate remains elevated and she is on room air. PAST MEDICAL HISTORY: Type 1 diabetes mellitus. PAST SURGICAL HISTORY: Appendectomy. FAMILY HISTORY: Noncontributory. SOCIAL HISTORY: Negative for alcohol, tobacco, or illicit drug use. She has no exposure to chemicals, dust, asbestos, or tuberculosis. ALLERGIES: NO KNOWN DRUG ALLERGIES MEDICATIONS: List of her inpatient medications was reviewed. Multiple updates were made. Namely, I switched her over to half-normal saline with 20 of K. REVIEW OF SYSTEMS: General; head, ears, eyes, nose, throat; cardiovascular; respiratory; GI; ; musculoskeletal; neurologic; and skin are negative except as mentioned in the HPI. PHYSICAL EXAMINATION: VITAL SIGNS: Afebrile. Pulse 140, blood pressure 127/69, respirations 32, and saturation 100% on room air. GENERAL: The patient is awake and alert. She is in [id number] respiratory distress. She demonstrates Kussmaul respirations. HEART: Tachycardic. Regular. ABDOMEN: Soft, nontender, and nondistended. Bowel sounds are positive. MUSCULOSKELETAL: No cyanosis or clubbing. No pitting in the bilateral lower extremities. NEUROLOGIC: Nonfocal. LABORATORY DATA: WBC 25.2, hemoglobin 16.6, platelets 469,000. Band count is 15%. Lymphocyte count is normal. A pH 6.81, pCO2 of 8.6, pO2 of 147. Basic metabolic profile is significant for chloride of 114, bicarb less than 8, creatinine 1.42 which is downtrending. Blood sugars ranged from 344 to greater than 550. On presentation, she was 702. Liver function studies were unremarkable except for a slightly elevated alkaline phosphatase. Serum was unremarkable. Troponin is negative x1 and lactate was unremarkable. Urinalysis is positive for glycosuria and ketonuria, and some proteinuria. Large blood was present, but there are very few red blood cells actually identified. Urine drug screen is negative for anything. Beta-hydroxybutyric acid 14.8. Influenza A and B are negative. IMAGING STUDIES: Chest x-ray demonstrates no acute cardiopulmonary abnormality. ASSESSMENT: 1. Diabetic ketoacidosis. 2. Acute kidney injury. 3. Systemic inflammatory response syndrome without overt signs of infection. DISCUSSION AND PLAN: I will switch the patient's IV fluids over to half-normal saline. We will continue running at 200. There will be some potassium in it to prevent hypokalemia. We will trend her electrolytes and magnesium through time. Once her sugars drop below 200, I will switch her over to D5 half NS with potassium added. Pulmonary/Critical Care will continue to follow along while the patient remains in the hospital. If her hyperventilation does not settle down by 4 o'clock this afternoon, I will be looking at securing her airway before the end of the day. At this point however, I am reassured that her respiratory rate is dropping, and that she is mentating better, and she indicates to me that her breathing is actually easing up. As such, continued close observation is reasonable. 70 minutes have been devoted to this patient in various activities. I personally reviewed all imaging studies and laboratory data noted within this document. For fifty percent of this time, I was interacting with the patient at the bedside or coordinating care with the care team. For the remainder of the time I was immediately available to the patient in the hospital unit. Job ID: [id number] [facility]
[2018-07-03 19:46] LABS: Carbon Dioxide Less than 8 mmol/L (22-29)
[2018-07-03] MEDS ORDERED: Prevnar 13-Val Conj/PF 0.5 ML SYRINGE IM ONE (21:00)
[2018-07-03] MEDS: Sodium Chloride 77 MEQ, Potassium Chloride 20 MEQ in Dextrose 10% in Water 1,000 ML IV SCH (21:10)
[2018-07-03] MEDS: Piperacillin/Tazobactam 3.375 GM in Sodium Chloride 0.9% 100 ML IVPB SCH (21:11)
[2018-07-03] MEDS: SODIUM BICARBONATE IV SCH (21:12)
[2018-07-03] MEDS: SODIUM CHLORIDE 0.45% IV SCH (21:12)
[2018-07-04 00:27] LABS: BUN (Urea Nitrogen) 11 mg/dL (7.0-18.7); Calc. Creatinine Clearance 64 mL/min (70-130); Calcium 8.8 mg/dL (7.8-10.44); Chloride 123 mmol/L (98-107); Estimated GFR-MDRD 55; Glucose 243 mg/dL (70-105); Magnesium 1.5 mg/dL (1.6-2.6); Potassium 3.1 mmol/L (3.5-5.1); Sodium 146 mmol/L (136-145)
[2018-07-04 00:29] LABS: Carbon Dioxide Less than 8 mmol/L (22-29); Phosphorus 1.2 mg/dL (2.3-4.7)
[2018-07-04] MEDS: Sodium Chloride 77 MEQ, Potassium Chloride 20 MEQ in Dextrose 10% in Water 1,000 ML IV SCH ×2 (03:39→11:51)
[2018-07-04] MEDS: Piperacillin/Tazobactam 3.375 GM in Sodium Chloride 0.9% 100 ML IVPB SCH ×2 (03:46→10:35)
[2018-07-04] MEDS: SODIUM CHLORIDE 0.45% IV SCH (04:10)
[2018-07-04] MEDS: SODIUM BICARBONATE IV SCH (04:10)
[2018-07-04 06:07] LABS: Anion Gap 11 mmol/L (10-20); BUN (Urea Nitrogen) 9 mg/dL (7.0-18.7); Calc. Creatinine Clearance 70 mL/min (70-130); Calcium 8.8 mg/dL (7.8-10.44); Carbon Dioxide 14 mmol/L (22-29); Chloride 123 mmol/L (98-107); Estimated GFR-MDRD 62; Glucose 205 mg/dL (70-105); Sodium 145 mmol/L (136-145)
[2018-07-04 06:11] LABS: Potassium 2.6 mmol/L (3.5-5.1)
[2018-07-04] MEDS: Insulin Glargine 30 UNITS in Pre-Filled Syringe 1 EACH SC SCH ×2 (10:36→20:26)
[2018-07-04] MEDS: Enoxaparin Sodium 40 MG/0.4 ML SYRINGE SC SCH ×2 (10:36→10:49)
[2018-07-04] MEDS ORDERED: Dextrose 5% in Water 1,000 ML IV PRN (11:39)
[2018-07-04] MEDS ORDERED: Dextrose 50% Abboject 50 ML SYRINGE SLOW IVP PRN (11:39)
[2018-07-04] MEDS ORDERED: Magnesium 2 GM/50 ML 2 GM in Premix Bag 1 BAG IVPB SCH (11:45)
[2018-07-04] MEDS ORDERED: Potassium Phosphate 30 MMOL in Sodium Chloride 0.9% 500 ML IVPB SCH (11:45)
--- NOTE | 2018-07-04 11:56 | PRG ---
DATE OF SERVICE: 07/04/2018 SERVICE: Pulmonary Medicine. INTERVAL HISTORY: The patient is doing much better from a cardiovascular and respiratory standpoint. She is breathing comfortably. Her respirations are way down. Denies any current fevers, chills, shortness of breath, cough, or sputum production. She had some hot and cold sensation, but never had any fevers throughout the night. She has not picked up her appetite to any significant degree yet, but she clearly is feeling better. Today, she is no longer toxic appearing. PHYSICAL EXAMINATION: VITAL SIGNS: Afebrile, pulse 102, blood pressure 104/69, respirations 18, and saturation 100% on room air. GENERAL: The patient is awake and alert, in no apparent distress. LUNGS: Decent air entry. No prolonged expiratory phase or wheezing is appreciated. HEART: Normal rate and regular. ABDOMEN: Soft, nontender, and nondistended. Bowel sounds are positive. MUSCULOSKELETAL: No cyanosis or clubbing. No pitting in the bilateral lower extremities. NEUROLOGIC: Grossly nonfocal. LABORATORY DATA: Blood sugar ranges from 102 to 192. Potassium 2.6. Basic metabolic profile is otherwise unremarkable. Magnesium previously 1.5, phosphorus previously 1.2. Urinalysis is unremarkable. Urine drug screen is negative. Her bicarb has improved finally to 14, and her anion gap is now within the normal limits. Influenza A and B are negative. Urine culture is unremarkable. ASSESSMENT: 1. Diabetic ketoacidosis, resolving. 2. Acute kidney injury, resolved. 3. Systemic inflammatory response syndrome, improving. DISCUSSION AND PLAN: I will discontinue the Zosyn as I do not have any evidence of an infectious process. I will repeat a magnesium and phosphorus this afternoon. We will provide her with dinner this evening with pre-meal insulin. Pulmonary/Critical Care will continue to follow along. Job ID: [id number]
[2018-07-04] MEDS: HumaLOG 300 UNITS/3 ML VIAL SC PRN (16:37)
[2018-07-04] MEDS: HumaLOG 300 UNITS/3 ML VIAL SC SCH (16:37)
[2018-07-04 17:33] LABS: Anion Gap 17 mmol/L (10-20); BUN (Urea Nitrogen) 7 mg/dL (7.0-18.7); Calc. Creatinine Clearance 74 mL/min (70-130); Calcium 9.1 mg/dL (7.8-10.44); Carbon Dioxide 13 mmol/L (22-29); Chloride 112 mmol/L (98-107); Estimated GFR-MDRD 61; Glucose 521 mg/dL (70-105); Magnesium 2.1 mg/dL (1.6-2.6); Phosphorus 3.4 mg/dL (2.3-4.7); Potassium 3.8 mmol/L (3.5-5.1); Sodium 138 mmol/L (136-145)
[2018-07-04] MEDS ORDERED: Insulin Regular 100 units/100 ml in NS IVPB SCH (18:30)
--- NOTE | 2018-07-04 19:09 | PDOC.PN ---
- Subjective Encounter Start Date: 07/04/18 Encounter Start Time: 14:00 Feeling better. No abdominal pain and no nausea. Reports this is actually her 14th episode of DKA. 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 She did no miss any of her insulin doses. She did start feeling poorly on Friday. - Objective Resuscitation Status - Order Detail: 07/03/18 11:10 Resuscitation Status Routine Resuscitation Status: FULL: Full Resuscitation Vital Signs & Weight: Vital Signs (12 hours) Temp Pulse Ox 07/04/18 16:00 98.2 F 07/04/18 12:00 98.1 F 07/04/18 08:00 98.5 F 100 Weight Weight 131 lb 6.328 oz Most Recent Monitor Data Heart Rate from ECG 108 NIBP 120/83 NIBP BP-Mean 95 Respiration from ECG 27 SpO2 99 I&O: 07/03/18 07/04/18 07/05/18 06:59 06:59 06:59 Intake Total 8743.3 4597 Output Total 4451 4575 Balance 4292.3 22 Result Diagrams: 07/03/18 07:32 07/04/18 17:03 Additional Labs: Accuchecks 07/04/18 07/04/18 07/04/18 18:47 16:25 12:03 POC Glucose 279 H 438 H 91 07/04/18 07/04/18 07/04/18 11:45 11:01 09:59 POC Glucose 87 102 138 H 07/04/18 07/04/18 07/04/18 09:01 08:02 07:01 POC Glucose 143 H 153 H 185 H 07/04/18 07/04/18 07/04/18 06:01 05:01 04:03 POC Glucose 192 H 157 H 234 H 07/04/18 07/04/18 07/04/18 03:02 02:05 01:04 POC Glucose 258 H 256 H 252 H 07/03/18 07/03/18 07/03/18 23:43 23:05 22:00 POC Glucose 177 H 212 H 145 H 07/03/18 07/03/18 07/03/18 20:59 20:01 19:13 POC Glucose 128 H 115 H 151 H Phys Exam - Physical Examination Constitutional: NAD Respiratory: no wheezing, no rales, no rhonchi, clear to auscultation bilateral Cardiovascular: RRR, no significant murmur, no rub Gastrointestinal: soft, non-tender, no distention Musculoskeletal: no edema Psychiatric: normal affect, A&O x 3 Dx/Plan (1) DKA (diabetic ketoacidoses) Code(s): E13.10 - OTH DIABETES MELLITUS WITH KETOACIDOSIS WITHOUT COMA Status : Acute Qualifiers: Diabetes mellitus type: type 1 Diabetes mellitus complication detail: without coma Qualified Code(s): E10.10 - Type 1 diabetes mellitus with ketoacidosis without coma (2) Acute kidney failure Status: Acute (3) Diabetes mellitus type 1 Status: Acute (4) Leukocytosis Code(s): D72.829 - ELEVATED WHITE BLOOD CELL COUNT, UNSPECIFIED Status: Acute - Plan * Improved on the DKA protocol. Continue. * Pulmonary following. * Start po diet. * Hope to be able to restart her regimen tomorrow.
[2018-07-05 05:50] LABS: Anion Gap 12 mmol/L (10-20); BUN (Urea Nitrogen) 4 mg/dL (7.0-18.7); Calc. Creatinine Clearance 116 mL/min (70-130); Calcium 8.9 mg/dL (7.8-10.44); Carbon Dioxide 19 mmol/L (22-29); Chloride 113 mmol/L (98-107); Estimated GFR-MDRD Greater than 90; Glucose 105 mg/dL (70-105); Magnesium 1.9 mg/dL (1.6-2.6); Phosphorus 2.8 mg/dL (2.3-4.7); Sodium 141 mmol/L (136-145)
[2018-07-05 06:06] LABS: Potassium 2.6 mmol/L (3.5-5.1)
[2018-07-05] MEDS: Potassium Chloride 20 MEQ TAB PO SCH ×3 (06:27→12:22)
[2018-07-05] MEDS ORDERED: Enoxaparin Sodium 40 MG/0.4 ML SYRINGE SC SCH (09:00)
[2018-07-05] MEDS: Insulin Glargine 30 UNITS in Pre-Filled Syringe 1 EACH SC SCH (09:02)
[2018-07-05] MEDS: HumaLOG 300 UNITS/3 ML VIAL SC SCH ×3 (09:04→17:31)
--- NOTE | 2018-07-05 12:19 | PRG ---
DATE OF SERVICE: 07/05/2018 SERVICE: Pulmonary Medicine. INTERVAL HISTORY: The patient actually feels much improved today. She is tolerating p.o. She is not having any nausea or vomiting. Otherwise, there has been no interval change to her condition. PHYSICAL EXAMINATION: VITAL SIGNS: Afebrile, pulse 99, blood pressure 110/76, respirations 19, and saturation 97% on room air. GENERAL: The patient is awake and alert, in no apparent distress. LUNGS: Excellent air entry. No prolonged expiratory phase or wheezing appreciated. HEART: Normal rate and regular. ABDOMEN: Soft, nontender, and nondistended. Bowel sounds are positive. MUSCULOSKELETAL: No cyanosis or clubbing. No pitting in the bilateral lower extremities. NEUROLOGIC: Grossly nonfocal. LABORATORY DATA: Potassium 2.6. Basic metabolic profile, magnesium and phosphorus are otherwise unremarkable/improving. The bicarb specifically has gone up to 19 , and the gap is once again close. ASSESSMENT: 1. Diabetic ketoacidosis. 2. Type 1 diabetes mellitus. 3. Acute kidney injury, resolved. 4. Systemic inflammatory response syndrome, resolved. DISCUSSION AND PLAN: I will replace the potassium. We will recheck electrolytes tomorrow morning. If all goes well, she can be considered for transition home at that point. I would like for her to stay in the hospital for one additional night to ensure a smooth transition. We will get her out of the [facility]. Job ID: [id number] MTDD
[2018-07-05] MEDS ORDERED: Lactated Ringer's 1,000 ML IV SCH (12:30)
--- NOTE | 2018-07-05 12:37 | PDOC.PN ---
- Subjective Encounter Start Date: 07/05/18 Encounter Start Time: 12:36 Subjective: Had some epigastric pain last night. -: Cough and nasal congestion is better. No fever, nausea or vomiting. - Objective Resuscitation Status - Order Detail: 07/03/18 11:10 Resuscitation Status Routine Resuscitation Status: FULL: Full Resuscitation Vital Signs & Weight: Vital Signs (12 hours) Temp Pulse Ox 07/05/18 11:23 98.8 F 07/05/18 08:00 99 07/05/18 07:15 97.4 F L 07/05/18 04:28 98.1 F Weight Weight 130 lb 5 oz Most Recent Monitor Data Heart Rate from ECG 99 NIBP 110/76 NIBP BP-Mean 87 Respiration from ECG 19 SpO2 97 I&O: 07/04/18 07/05/18 07/06/18 06:59 06:59 06:59 Intake Total 8743.3 5943 Output Total 4451 5550 Balance 4292.3 393 Result Diagrams: 07/03/18 07:32 07/05/18 04:30 Additional Labs: Accuchecks 07/05/18 07/05/18 07/05/18 12:16 10:07 07:52 POC Glucose 112 H 156 H 114 H 07/05/18 07/05/18 07/05/18 06:01 04:03 02:04 POC Glucose 79 120 H 93 07/05/18 07/04/18 07/04/18 00:05 23:09 22:06 POC Glucose 121 H 168 H 241 H 07/04/18 07/04/18 07/04/18 21:08 20:11 18:47 POC Glucose 296 H 314 H 279 H 07/04/18 16:25 POC Glucose 438 H Phys Exam - Physical Examination Constitutional: NAD afebrile HEENT: PERRLA, moist MMs Neck: no JVD, supple Respiratory: no wheezing, no rales, no rhonchi, clear to auscultation bilateral Cardiovascular: RRR, no significant murmur Gastrointestinal: soft, no distention, positive bowel sounds Musculoskeletal: no edema, pulses present Neurological: non-focal, moves all 4 limbs Psychiatric: A&O x 3 Dx/Plan (1) Hyperchloremic acidosis Code(s): E87.2 - ACIDOSIS Status: Acute (2) Acute URI Code(s): J06.9 - ACUTE UPPER RESPIRATORY INFECTION, UNSPECIFIED Status: Acute (3) Acute kidney failure Status: Acute (4) DKA (diabetic ketoacidoses) Code(s): E13.10 - OTH DIABETES MELLITUS WITH KETOACIDOSIS WITHOUT COMA Status : Acute Qualifiers: Diabetes mellitus type: type 1 Diabetes mellitus complication detail: without coma Qualified Code(s): E10.10 - Type 1 diabetes mellitus with ketoacidosis without coma (5) Diabetes mellitus type 1 Status: Acute (6) Hypokalemia Code(s): E87.6 - HYPOKALEMIA Status: Acute (7) Hypomagnesemia Code(s): E83.42 - HYPOMAGNESEMIA Status: Acute (8) Hyponatremia Code(s): E87.1 - HYPO-OSMOLALITY AND HYPONATREMIA Status: Acute Comment: Pseudohyponatremia due to hyperglycemia (9) Hypophosphatemia Code(s): E83.39 - OTHER DISORDERS OF PHOSPHORUS METABOLISM Status: Acute - Plan Start LR at 100 cc/hr -: Replete serum potassium -: Start PPI for possible GERD. -: Continue insulin therapy -: Transfer to medical. * .
[2018-07-05] MEDS: Insulin Glargine 25 UNITS in Pre-Filled Syringe SC SCH (21:46)
[2018-07-05] MEDS: HumaLOG 300 UNITS/3 ML VIAL SC PRN (21:47)
[2018-07-06] MEDS: HumaLOG 300 UNITS/3 ML VIAL SC SCH ×2 (07:55→12:16)
[2018-07-06] MEDS: Insulin Glargine 25 UNITS in Pre-Filled Syringe SC SCH (07:55)
[2018-07-06 08:04] LABS: #Eosinphils 0.1 thou/uL (0.0-0.7); #Lymphocytes 2.7 thou/uL (1.20-3.40); #Monocytes 0.5 thou/uL (0.11-0.59); #Neutrophils 2.3 thou/uL (1.40-6.50); %Basophils 0.5 % (0.0-1.0); %Eosinophils 1.4 % (0.0-10.0); %Lymphocytes 47.9 % (21.0-51.0); %Monocytes 8.5 % (0.0-10.0); %Neutrophils 41.7 % (42.0-75.0); Hemoglobin 14.7 g/dL (12.0-16.0); Mean Corpuscular HGB CONC 33.3 g/dL (32.0-36.0); Mean Corpuscular Hemoglobin 30.2 pg (27.0-31.0); Mean Corpuscular Volume 90.8 fL (78.0-98.0); Mean Platelet Volume 7.3 fL (7.4-10.4); Platelet Count 222 thou/uL (130-400); RBC Distribution Width 13.4 % (11.5-14.5); Red Blood Cell (RBC) Count 4.85 mill/uL (4.20-5.40); White Blood Cell (WBC) Count 5.5 thou/uL (4.8-10.8)
[2018-07-06 08:13] LABS: Anion Gap 13 mmol/L (10-20); BUN (Urea Nitrogen) 9 mg/dL (7.0-18.7); Calc. Creatinine Clearance 118 mL/min (70-130); Calcium 9.3 mg/dL (7.8-10.44); Carbon Dioxide 23 mmol/L (22-29); Chloride 110 mmol/L (98-107); Estimated GFR-MDRD Greater than 90; Glucose 133 mg/dL (70-105); Potassium 3.3 mmol/L (3.5-5.1); Sodium 143 mmol/L (136-145)
[2018-07-06] MEDS ORDERED: Potassium Chloride 20 MEQ TAB PO SCH (09:00)
[2018-07-06 11:39] VITALS: BP 103/70; TEMP 97.9
[2018-07-06 12:52] LABS: pH (Venous) 6.835 (7.320-7.430)
[2018-07-06 12:53] LABS: O2 Tension (PvO2) 122.6 mmHg (35.0-45.0)
[2018-07-06 12:54] LABS: Chloride 122 mmol/L (98-107); Potassium 5.3 mmol/L (3.5-5.1); Sodium 136 mmol/L (138-145)
[2018-07-06 12:55] LABS: Calcium, Ionized 1.34 mmol/L (See Comments:); T. Carbon Dioxide Less than 5.0 mmol/L (22.0-28.0); vO2 Saturation-calc 93.9 % (60.0-85.0)
--- NOTE | 2018-07-06 13:35 | DIS ---
DATE OF ADMISSION: 07/03/2018 DATE OF DISCHARGE: 07/06/2018 DISCHARGE DIAGNOSES: 1. Diabetic ketoacidosis. 2. Type 1 diabetes mellitus. 3. Acute kidney injury. 4. Dehydration. 5. Acute upper respiratory infection. 6. Hypokalemia. 7. Hypomagnesemia. 8. Hypophosphatemia. 9. Hyponatremia. 10. Hyperchloremic acidosis. CONSULTS: Pulmonary and Critical Care. HOSPITAL COURSE: A 22-year-old with known history of type 1 diabetes with prior hospitalization for DKA, who was admitted due to acute onset of shortness of breath and generalized weakness and ill feeling of a day prior to presentation. The patient reported sick contacts as well as nasal congestion and rhinorrhea. The patient on presentation was found to have hyperglycemia and anion gap metabolic acidosis consistent with diabetic ketoacidosis. She was also found to have multiple electrolyte derangements and was clinically dry. She was treated with IV fluids, insulin infusion with improvement in general condition. Evaluation for possible infection given the patient has leukocytosis on presentation was unremarkable. With closure of anion gap, insulin infusion was later transitioned to subcutaneous insulin and the patient started on diet, which was well tolerated. The patient's blood sugar remained controlled, and she remained stable and was subsequently discharged home to follow up with PCP and v belt builder. PHYSICAL EXAMINATION: VITAL SIGNS: Temperature 97.9, pulse 87, respiratory rate 20, SpO2 100% on room air, blood pressure is 103/70. GENERAL: Healthy looking young female, in no distress. Afebrile. Anicteric. Acyanotic. HEENT: Normocephalic, atraumatic. Pupils are equal and reacting to light. CARDIOVASCULAR: Regular rhythm and rate with normal heart sounds 1 and 2. RESPIRATORY: Good air entry bilaterally with no crackle or rhonchi or use of accessory muscles. GI: Full, soft, nontender, nondistended with normal bowel sounds. EXTREMITIES: Grossly normal looking, atraumatic with no edema or erythema. NEUROLOGIC: Conscious and alert, oriented x3 with appropriate mental status. The patient is ambulant. CONDITION AT DISCHARGE: Improved and stable. DISCHARGE MEDICATIONS: 1. Tresiba 25 units b.i.d. 2. Humalog with meals and at bedtime according to calorie count. 3. Tylenol 650 mg q.6 p.r.n. for pain. 4. Zyrtec 10 mg p.o. daily. 5. Fluticasone propionate nasal spray daily. FOLLOWUP: The patient is to follow up with PCP in 7 days. The patient also is to contact v belt builder for appointment and for insulin therapy adjustment. This discharge took more than 35 minutes. Job ID: [id number]
== END 2018-07-06 14:15 | disposition home or self-care (01) | DRG 638 ==
LOC: ERS 07:17 → CCU 12:30 → IMCU/EMU 07-04 19:42 → 3SE 07-05 18:46
PROVIDERS: ADMIT Internal Medicine; ATTEND Internal Medicine
DX: E10.10 Type 1 diabetes mellitus with ketoacidosis without coma (principal); N17.9 Acute kidney failure, unspecified; E87.1 Hypo-osmolality and hyponatremia; E86.0 Dehydration; J06.9 Acute upper respiratory infection, unspecified; E87.6 Hypokalemia; E83.42 Hypomagnesemia; E83.39 Other disorders of phosphorus metabolism; Z90.49 Acquired absence of other specified parts of digestive tract
CPT/HCPCS: 36415; 36416; 71045; 80048; 80053; 80306; 80307; 81003; 81015; 82010; 82330; 82550; 82803; 82805; 83605; 83735; 84100; 84484; 84703; 85025; 87086; 87804; 93005; 96361; 96365; 96366; 96375; 96376; C9113; J1650; J1815; J1825; J2060; J2405; J2543; J3475; J3480; J3490; J7050

== ENCOUNTER 2021-03-29 07:12 | Outpatient (CLI) | payer BC, OTHER ==
[2021-03-29 18:33] LABS: SARS-CoV-2 PCR by NAA DETECTED (NotDetected)
== END 2021-03-29 07:13 | disposition home or self-care (01) ==
LOC: LABBT 07:12
PROVIDERS: ATTEND Internal Medicine Cardiovascular Disease
DX: U07.1 COVID-19 (principal); Z01.812 Encounter for preprocedural laboratory examination
CPT/HCPCS: U0003; U0005

== ENCOUNTER 2021-08-30 17:29 | Outpatient (CLI) | payer BC, OTHER | END 2021-08-30 17:30 | disposition home or self-care (01) | LOC: LABBT 17:29 | PROVIDERS: ATTEND Ophthalmology Retina Specialist | DX: E11.3593 Type 2 diabetes mellitus with proliferative diabetic retinopathy without macular edema, bilateral (principal); Z20.822 Contact with and (suspected) exposure to COVID-19 | CPT/HCPCS: U0003; U0005 ==

== ENCOUNTER 2021-09-04 08:14 | Day surgery (SDC) | payer BC, OTHER ==
[2021-08-31 13:58] VITALS: BMI 23.8
[2021-09-04] MEDS ORDERED: Cyclopentolate 1% Opth Drop 2 ML BOT ONE (08:37)
[2021-09-04] MEDS ORDERED: Phenylephrine 2.5% Ophth Soln 5 ML BOT ONE (08:37)
[2021-09-04] MEDS ORDERED: Lidocaine 1% MPF 2 ML VIAL ONE (08:58)
[2021-09-04] MEDS ORDERED: Midazolam HCl 2 mg/2 ml Vial ONE ×2 (09:21→09:58)
[2021-09-04] MEDS ORDERED: fentaNYL Citrate/PF 100 MCG/2 ML SYRINGE ONE (09:58)
[2021-09-04] MEDS ORDERED: diphenhydrAMINE 50 MG/ML VIAL ONE (10:05)
[2021-09-04] MEDS ORDERED: Dexamethasone 20 MG/5 ML VIAL ONE (10:05)
[2021-09-04] MEDS ORDERED: Lidocaine 1% PF 5 ML VIAL ONE (10:05)
[2021-09-04] MEDS ORDERED: PROPOFOL 200 MG/20 ML VIAL ONE (10:05)
== END 2021-09-04 11:55 | disposition home or self-care (01) ==
LOC: SDC 08:14
PROVIDERS: ATTEND Ophthalmology Retina Specialist
PROC: 08Q Eye, Repair (ICD-10-PCS; principal; 2021-09-04)
PROC: 08Q Eye, Repair (ICD-10-PCS; principal; 2021-09-04)
DX: E11.3593 Type 2 diabetes mellitus with proliferative diabetic retinopathy without macular edema, bilateral (principal); Z79.4 Long term (current) use of insulin; Z79.899 Other long term (current) drug therapy; Z88.8 Allergy status to other drugs, medicaments and biological substances
CPT/HCPCS: 36416; J1100; J1200; J2250; J2704

== ENCOUNTER 2021-11-15 07:06 | Outpatient (CLI) | payer BC, OTHER | END 2021-11-15 07:07 | disposition home or self-care (01) | LOC: LABBT 07:06 | PROVIDERS: ATTEND Ophthalmology Retina Specialist | DX: E11.3593 Type 2 diabetes mellitus with proliferative diabetic retinopathy without macular edema, bilateral (principal); H54.7 Unspecified visual loss; Z20.822 Contact with and (suspected) exposure to COVID-19 | CPT/HCPCS: 87811 ==

== ENCOUNTER 2021-11-20 07:08 | Day surgery (SDC) | payer BC, OTHER ==
[2021-11-16 12:26] VITALS: BMI 23.8
[2021-11-20] MEDS ORDERED: Phenylephrine 2.5% Ophth Soln 5 ML BOT ONE (08:00)
[2021-11-20] MEDS ORDERED: Cyclopentolate 1% Opth Drop 2 ML BOT ONE (08:00)
[2021-11-20] MEDS ORDERED: Famotidine/PF 20 mg/2ml Vial ONE (09:12)
[2021-11-20] MEDS ORDERED: fentaNYL Citrate/PF 100 MCG/2 ML SYRINGE ONE (09:12)
[2021-11-20] MEDS ORDERED: Lidocaine 1% MPF 2 ML VIAL ONE (09:13)
[2021-11-20] MEDS ORDERED: PROPOFOL 200 MG/20 ML VIAL ONE (09:13)
[2021-11-20] MEDS ORDERED: Metoclopramide HCl 10 MG/2 ML VIAL ONE (09:13)
[2021-11-20] MEDS ORDERED: Morphine 2 MG/ML VIAL ONE (11:14)
[2021-11-20] MEDS ORDERED: Promethazine HCl 25 MG/ML VIAL ONE ×2 (11:14→12:00)
== END 2021-11-20 12:42 | disposition home or self-care (01) ==
LOC: SDC 07:08
PROVIDERS: ATTEND Ophthalmology Retina Specialist
DX: E11.3593 Type 2 diabetes mellitus with proliferative diabetic retinopathy without macular edema, bilateral (principal); Z79.3 Long term (current) use of hormonal contraceptives; Z79.4 Long term (current) use of insulin; Z88.8 Allergy status to other drugs, medicaments and biological substances; Z96.41 Presence of insulin pump (external) (internal)
CPT/HCPCS: 36416; J2270; J2550; J2704; J2765; S0028

== ENCOUNTER 2022-02-19 06:47 | Day surgery (SDC) | payer BC, OTHER ==
[2022-02-18 09:35] VITALS: BMI 23.8
[2022-02-19] MEDS ORDERED: Midazolam HCl 2 mg/2 ml Vial ONE (06:53)
[2022-02-19] MEDS ORDERED: fentaNYL PF 100 MCG/2 ML SYRINGE ONE (06:54)
[2022-02-19] MEDS ORDERED: Cyclopentolate 1% Opth Drop 2 ML BOT ONE (07:34)
[2022-02-19] MEDS ORDERED: Phenylephrine 2.5% Ophth Soln 5 ML BOT ONE (07:34)
[2022-02-19] MEDS ORDERED: Famotidine/PF 20 mg/2ml Vial ONE (08:31)
[2022-02-19] MEDS ORDERED: Ketorolac Tromethamine 30 MG/ML VIAL ONE (08:35)
[2022-02-19] MEDS ORDERED: Dexamethasone 20 MG/5 ML VIAL ONE (08:35)
[2022-02-19] MEDS ORDERED: PROPOFOL 200 MG/20 ML VIAL ONE (08:35)
[2022-02-19] MEDS ORDERED: Metoclopramide HCl 10 MG/2 ML VIAL ONE (08:35)
[2022-02-19] MEDS ORDERED: Promethazine HCl 25 MG/ML VIAL ONE (08:36)
== END 2022-02-19 11:45 | disposition home or self-care (01) ==
LOC: SDC 06:47
PROVIDERS: ATTEND Ophthalmology Retina Specialist
DX: E11.3593 Type 2 diabetes mellitus with proliferative diabetic retinopathy without macular edema, bilateral (principal); H43.11 Vitreous hemorrhage, right eye; Z79.3 Long term (current) use of hormonal contraceptives; Z79.4 Long term (current) use of insulin; Z88.8 Allergy status to other drugs, medicaments and biological substances
CPT/HCPCS: J2250; J2550; S0028